=== PATIENT | female | born 1965 | race Caucasian/White ===

== ENCOUNTER 2017-03-29 16:46 | Emergency (ER) | payer OTHER ==
[~2017-03-29] VITALS: Ht 165.1 cm; Wt 107.5 kg
[2017-03-29] MEDS ORDERED: LOSARTAN POTAS100 MG PO (19:13)
[2017-03-29] MEDS ORDERED: METO50 PO (19:13)
[2017-03-29] MEDS ORDERED: GABA600 PO (19:13)
[2017-03-29] MEDS ORDERED: LORA1 PO (19:14)
[2017-03-29] MEDS ORDERED: BACL20 PO (19:14)
[2017-03-29] MEDS ORDERED: DULO60 PO (19:14)
[2017-03-29 19:44] LABS: BASOPHILS PERCENT AUTO 1 % (0-2); EOSINOPHILS ABSOLUTE AUTO 0.31 K/mm3 (0.00-0.68); EOSINOPHILS PERCENT AUTO 3 % (0-6); Hematocrit 42.5 % (33.0-51.0); Hemoglobin 14.9 g/dL (11.5-16.0); IMMATURE GRAN ABSOLUTE AUTO 0.08 K/mm3 (0.00-0.10); IMMATURE GRAN PERCENT AUTO 1 % (0-1); LYMPHOCYTES ABSOLUTE AUTO 2.22 K/mm3 (0.84-5.20); LYMPHOCYTES PERCENT AUTO 22 % (21-46); MONOCYTES PERCENT AUTO 7 % (4-13); Mean Corpuscular HGB 31.1 pg (26.0-34.0); Mean Corpuscular HGB Conc 35.1 g/dL (31.5-36.5); Mean Corpuscular Volume 89 fL (80-100); Mean Platelet Volume 9.7 fL (9.1-12.4); NEUTROPHILS ABSOLUTE AUTO 6.73 K/mm3 (1.96-9.15); NEUTROPHILS PERCENT AUTO 66 % (41-73); Platelet Count 238 K/mm3 (150-400); RDW Coefficient Variation 12.8 % (11.7-14.2); RDW Standard Deviation 41.6 fL (35.1-46.3); Red Blood Cell Count 4.79 M/mm3 (3.80-5.20); White Blood Cell Count 10.14 K/mm3 (4.00-11.30)
[2017-03-29 20:00] LABS: Influenza A Negative (NEGATIVE); Influenza B Negative (NEGATIVE)
[2017-03-29 20:04] LABS: Alanine Aminotransfer (ALT/SGP 36 U/L (12-78); Albumin, Blood 3.8 g/dL (3.4-5.0); Albumin/Globulin Ratio 0.8 (0.8-1.8); Alk Phos 69 U/L (50-136); Anion Gap 7 mmol/L (6-16); Aspartate Aminotrans (AST/SGOT 46 U/L (12-37); Bilirubin, Total 0.6 mg/dL (0.1-1.0); Blood Urea Nitrogen 11 mg/dL (8-24); Bun/Creatinine Ratio 18.6 (12.0-20.0); CO2, Blood 26 mmol/L (21-32); Chloride, Blood 104 mmol/L (98-108); Creatinine, Blood 0.59 mg/dL (0.40-1.00); Globulin, Blood 4.6 g/dL (2.2-4.0); Glomerular Filtration Rate >60 (60-); Glucose, Blood 103 mg/dL (70-99); Potassium, Blood 4.4 mmol/L (3.5-5.5); Sodium, Blood 137 mmol/L (136-145); Total Protein, Blood 8.4 g/dL (6.4-8.2)
[2017-03-29 20:46] LABS: Source, Urine Clean Catch
[2017-03-29 20:50] LABS: Appearance, Urine Hazy (Clear); Bilirubin, Urine Neg (Neg); Blood, Urine Neg (Neg); Color, Urine Yellow (P-Yellow); Glucose Qualitative, Urine Neg (Neg); Ketones, Urine Neg (Neg); Leukocyte Esterase, Urine 2+ (Neg); Nitrite, Urine Pos (Neg); Protein, Urine Neg (Neg); Urobilinogen, Urine NORM (Normal)
[2017-03-29 20:58] LABS: Bacteria Many /hpf; Red Blood Cells, Urine Not Seen /hpf (0-2); Squamous Epithelial Cells Few /hpf (Few)
[2017-03-29 20:59] LABS: U Amphetamine Screen Not Detected; U Barbituate Screen Not Detected; U Cocaine Screen Not Detected; U Methamphetamine Screen Not Detected
[2017-03-29 21:00] LABS: U Benzodiazapine Screen DETECTED; U Buprenorphine Screen Not Detected; U Cannabinoids Screen Not Detected; U Methadone Screen Not Detected; U Opiates Screen DETECTED; U Oxycodone Screen Not Detected; U Phencyclidine Screen Not Detected; U Propoxyphene Screen Not Detected
[2017-03-29 21:22] LABS: Troponin I <0.015 ng/mL (0.000-0.040)
[2017-04-04] MEDS ORDERED: Macrobid 100 M100 MG PO (08:04)
== END 2017-03-29 22:00 | disposition home or self-care (01) ==
LOC: ER 16:46
PROVIDERS: Emergency Medicine
DX: R51 Headache (principal); R53.1 Weakness; R53.83 Other fatigue; Z88.0 Allergy status to penicillin; Z88.2 Allergy status to sulfonamides; Z88.1 Allergy status to other antibiotic agents; Z88.5 Allergy status to narcotic agent; Z79.899 Other long term (current) drug therapy
CPT/HCPCS: 36415; 71046; 80053; 81001; 84443; 84484; 85025; 87077; 87086; 87186; 87804; 93005; 93010; 96360; 96361; 99283; J7030

== ENCOUNTER → 2017-05-01 | Outpatient (CLI) | payer OTHER ==
[~2017-05-01] MED LIST: BACL20 PO; DICLOFENAC SOD100 G1 TOP; DULO60 PO; DULOXETINE HCL30 MG PO; GABA600 PO; LORA1 PO; LOSARTAN POTAS100 MG PO; METO50 PO; Macrobid 100 M100 MG PO; ONDA4ODT MM; Ultram50 MG PO
== END ==
LOC: LAB 11:04
DX: N39.0 Urinary tract infection, site not specified (principal)
CPT/HCPCS: 87077; 87086; 87186

== ENCOUNTER 2017-06-05 01:13 | Emergency (ER) | payer OTHER ==
[~2017-06-05] VITALS: Ht 165.1 cm; Wt 137.9 kg
[~2017-06-05 01:13] MED LIST changes: -DICLOFENAC SOD100 G1 TOP; -DULOXETINE HCL30 MG PO; -ONDA4ODT MM; -Ultram50 MG PO
[2017-06-05] MEDS ORDERED: ONDA4ODT MM (02:56)
[2017-06-05 03:24] LABS: Source, Urine Clean Catch
[2017-06-05 03:27] LABS: BASOPHILS PERCENT AUTO 1 % (0-2); EOSINOPHILS ABSOLUTE AUTO 0.37 K/mm3 (0.00-0.68); EOSINOPHILS PERCENT AUTO 3 % (0-6); Hematocrit 41.8 % (33.0-51.0); Hemoglobin 14.6 g/dL (11.5-16.0); IMMATURE GRAN ABSOLUTE AUTO 0.06 K/mm3 (0.00-0.10); IMMATURE GRAN PERCENT AUTO 0 % (0-1); LYMPHOCYTES ABSOLUTE AUTO 2.55 K/mm3 (0.84-5.20); LYMPHOCYTES PERCENT AUTO 18 % (21-46); MONOCYTES ABSOLUTE AUTO 1.08 K/mm3 (0.16-1.47); MONOCYTES PERCENT AUTO 8 % (4-13); Mean Corpuscular HGB 31.7 pg (26.0-34.0); Mean Corpuscular HGB Conc 34.9 g/dL (31.5-36.5); Mean Corpuscular Volume 91 fL (80-100); Mean Platelet Volume 9.6 fL (9.1-12.4); NEUTROPHILS ABSOLUTE AUTO 10.08 K/mm3 (1.96-9.15); NEUTROPHILS PERCENT AUTO 71 % (41-73); Platelet Count 247 K/mm3 (150-400); RDW Coefficient Variation 13.2 % (11.7-14.2); RDW Standard Deviation 43.4 fL (35.1-46.3); Red Blood Cell Count 4.61 M/mm3 (3.80-5.20); White Blood Cell Count 14.24 K/mm3 (4.00-11.30)
[2017-06-05 03:27] LABS: Appearance, Urine Cloudy (Clear); Bilirubin, Urine Neg (Neg); Blood, Urine 4+ (Neg); Color, Urine Yellow (P-Yellow); Glucose Qualitative, Urine Neg (Neg); Ketones, Urine Neg (Neg); Leukocyte Esterase, Urine 3+ (Neg); Nitrite, Urine Pos (Neg); Protein, Urine 3+ (Neg); Specific Gravity, Urine 1.015 (1.003-1.022); Urobilinogen, Urine NORM (Normal)
[2017-06-05 03:33] LABS: Bacteria Many /hpf; Red Blood Cells, Urine 0-2 /hpf (0-2); Squamous Epithelial Cells Few /hpf (Few); White Blood Cells, Urine TNTC /hpf (0-5)
[2017-06-05 03:46] LABS: Alanine Aminotransfer (ALT/SGP 26 U/L (12-78); Albumin, Blood 3.6 g/dL (3.4-5.0); Albumin/Globulin Ratio 0.7 (0.8-1.8); Alk Phos 68 U/L (50-136); Anion Gap 6 mmol/L (6-16); Aspartate Aminotrans (AST/SGOT 26 U/L (12-37); Bilirubin, Total 0.4 mg/dL (0.1-1.0); Blood Urea Nitrogen 17 mg/dL (8-24); Bun/Creatinine Ratio 23.5 (12.0-20.0); CO2, Blood 29 mmol/L (21-32); Calcium, Blood 9.1 mg/dL (8.5-10.1); Chloride, Blood 104 mmol/L (98-108); Creatinine, Blood 0.72 mg/dL (0.40-1.00); Glomerular Filtration Rate >60 (60-); Glucose, Blood 133 mg/dL (70-99); Potassium, Blood 4.1 mmol/L (3.5-5.5); Sodium, Blood 139 mmol/L (136-145); Total Protein, Blood 8.6 g/dL (6.4-8.2)
== END 2017-06-05 06:30 | disposition short-term general hospital (02) ==
LOC: ER 01:13
PROVIDERS: Emergency Medicine
DX: N13.6 Pyonephrosis (principal); Z88.0 Allergy status to penicillin; Z88.2 Allergy status to sulfonamides; Z88.1 Allergy status to other antibiotic agents; Z88.8 Allergy status to other drugs, medicaments and biological substances; Z79.899 Other long term (current) drug therapy; E66.9 Obesity, unspecified; Z68.43 Body mass index [BMI] 50.0-59.9, adult; Z88.5 Allergy status to narcotic agent; Z88.6 Allergy status to analgesic agent
CPT/HCPCS: 36415; 74176; 80053; 81001; 83605; 83690; 83735; 85025; 87040; 87077; 87086; 87186; 96365; 96375; 96376; 99285; J1170; J1956; J7030

== ENCOUNTER → 2017-06-16 | Outpatient (CLI) | payer OTHER ==
[~2017-06-16] MED LIST changes: +ONDA4ODT MM
== END ==
LOC: LAB SHORT 08:40 → LAB 08:40
DX: N39.0 Urinary tract infection, site not specified (principal)
CPT/HCPCS: 87086

== ENCOUNTER 2017-07-18 14:38 | Emergency (ER) | payer OTHER ==
[~2017-07-18] VITALS: Ht 165.1 cm; Wt 136.1 kg
[2017-07-18] MEDS ORDERED: Ultram50 MG PO (17:13)
[2017-07-18] MEDS ORDERED: DULOXETINE HCL30 MG PO (17:31)
[2017-07-18] MEDS ORDERED: DICLOFENAC SOD100 G1 TOP (17:33)
== END 2017-07-18 17:40 | disposition home or self-care (01) ==
LOC: ER 14:38
DX: S93.602A Unspecified sprain of left foot, initial encounter (principal); M25.512 Pain in left shoulder; M25.511 Pain in right shoulder; M54.5 Low back pain; M25.552 Pain in left hip; E66.9 Obesity, unspecified; Z88.0 Allergy status to penicillin; Z88.2 Allergy status to sulfonamides; Z88.1 Allergy status to other antibiotic agents; Z88.5 Allergy status to narcotic agent; Z88.6 Allergy status to analgesic agent; Z88.8 Allergy status to other drugs, medicaments and biological substances; Z79.899 Other long term (current) drug therapy; W18.30XA Fall on same level, unspecified, initial encounter
CPT/HCPCS: 72040; 72100; 73030; 73502; 73620; 96374; 99284; J3010

== ENCOUNTER → 2017-11-24 | Outpatient (CLI) | payer OTHER ==
[~2017-11-24] MED LIST changes: +DICLOFENAC SOD100 G1 TOP; +DULOXETINE HCL30 MG PO; +Ultram50 MG PO
[2017-11-24 19:13] LABS: Bilirubin, Urine Neg (Neg); Blood, Urine 2+ (Neg); Glucose Qualitative, Urine Neg (Neg); Ketones, Urine Neg (Neg); Leukocyte Esterase, Urine 3+ (Neg); Nitrite, Urine Neg (Neg); Protein, Urine 2+ (Neg); Specific Gravity, Urine 1.025 (1.003-1.022); Urobilinogen, Urine NORM (Normal)
[2017-11-24 19:20] LABS: Appearance, Urine Cloudy (Clear); Color, Urine Yellow (P-Yellow); White Blood Cells, Urine 50-100 /hpf (0-5)
[2017-11-24 19:21] LABS: Bacteria Many /hpf; Squamous Epithelial Cells Many /hpf (Few)
== END ==
LOC: LAB SHORT 13:50 → LAB 13:50
PROVIDERS: Nurse Practitioner Family
DX: R30.0 Dysuria (principal)
CPT/HCPCS: 81001; 87077; 87086; 87186

== ENCOUNTER → 2018-03-17 | Outpatient (CLI) | payer OTHER ==
[~2018-03-17] MED LIST changes: +Cipro500 MG PO; +Percocet 7.5-31 EACH PO
[2018-03-17 11:48] LABS: Source, Urine Clean Catch
[2018-03-17 16:21] LABS: Appearance, Urine Turbid (Clear); Bilirubin, Urine Neg (Neg); Blood, Urine 1+ (Neg); Color, Urine Yellow (P-Yellow); Glucose Qualitative, Urine Neg (Neg); Ketones, Urine Neg (Neg); Leukocyte Esterase, Urine 3+ (Neg); Nitrite, Urine Neg (Neg); Protein, Urine 2+ (Neg); Specific Gravity, Urine 1.025 (1.003-1.022); Urobilinogen, Urine NORM (Normal)
[2018-03-17 16:30] LABS: Red Blood Cells, Urine Not Seen /hpf (0-2)
[2018-03-17 16:31] LABS: Bacteria Many /hpf; Squamous Epithelial Cells Few /hpf (Few)
== END ==
LOC: LAB SHORT 11:15 → LAB 11:15
PROVIDERS: Nurse Practitioner Family
DX: R35.8 Other polyuria (principal)
CPT/HCPCS: 81001; 87077; 87086; 87186

== ENCOUNTER 2018-03-24 10:12 | Emergency (ER) | payer OTHER ==
[~2018-03-24] VITALS: Ht 165.1 cm; Wt 141.1 kg
[~2018-03-24 10:12] MED LIST changes: -Cipro500 MG PO; -Percocet 7.5-31 EACH PO
[2018-03-24 11:01] LABS: BASOPHILS ABSOLUTE AUTO 0.13 K/mm3 (0.00-0.23); BASOPHILS PERCENT AUTO 1 % (0-2); EOSINOPHILS ABSOLUTE AUTO 0.42 K/mm3 (0.00-0.68); EOSINOPHILS PERCENT AUTO 4 % (0-6); Hematocrit 45.9 % (33.0-51.0); Hemoglobin 15.9 g/dL (11.5-16.0); IMMATURE GRAN ABSOLUTE AUTO 0.04 K/mm3 (0.00-0.10); IMMATURE GRAN PERCENT AUTO 0 % (0-1); LYMPHOCYTES ABSOLUTE AUTO 2.76 K/mm3 (0.84-5.20); LYMPHOCYTES PERCENT AUTO 27 % (21-46); MONOCYTES PERCENT AUTO 9 % (4-13); Mean Corpuscular HGB 31.5 pg (26.0-34.0); Mean Corpuscular HGB Conc 34.6 g/dL (31.5-36.5); Mean Corpuscular Volume 91 fL (80-100); Mean Platelet Volume 9.6 fL (9.1-12.4); NEUTROPHILS ABSOLUTE AUTO 5.97 K/mm3 (1.96-9.15); NEUTROPHILS PERCENT AUTO 58 % (41-73); Platelet Count 270 K/mm3 (150-400); RDW Coefficient Variation 13.1 % (11.7-14.2); RDW Standard Deviation 43.4 fL (35.1-46.3); Red Blood Cell Count 5.04 M/mm3 (3.80-5.20); White Blood Cell Count 10.22 K/mm3 (4.00-11.30)
[2018-03-24 11:03] LABS: Source, Urine Clean Catch
[2018-03-24 11:16] LABS: Alanine Aminotransfer (ALT/SGP 30 U/L (12-78); Albumin, Blood 4.1 g/dL (3.4-5.0); Albumin/Globulin Ratio 0.9 (0.8-1.8); Alk Phos 68 U/L (50-136); Anion Gap 9 mmol/L (6-16); Aspartate Aminotrans (AST/SGOT 44 U/L (12-37); Bilirubin, Total 0.8 mg/dL (0.1-1.0); Blood Urea Nitrogen 13 mg/dL (8-24); Bun/Creatinine Ratio 19.6 (12.0-20.0); CO2, Blood 29 mmol/L (21-32); Calcium, Blood 8.9 mg/dL (8.5-10.1); Chloride, Blood 101 mmol/L (98-108); Creatinine, Blood 0.66 mg/dL (0.40-1.00); Globulin, Blood 4.5 g/dL (2.2-4.0); Glomerular Filtration Rate >60 (60-); Glucose, Blood 109 mg/dL (70-99); Potassium, Blood 3.9 mmol/L (3.5-5.5); Sodium, Blood 139 mmol/L (136-145); Total Protein, Blood 8.6 g/dL (6.4-8.2)
[2018-03-24 11:19] LABS: Appearance, Urine Turbid (Clear); Bilirubin, Urine Neg (Neg); Blood, Urine 1+ (Neg); Color, Urine Yellow (P-Yellow); Glucose Qualitative, Urine Neg (Neg); Ketones, Urine 1+ (Neg); Leukocyte Esterase, Urine 1+ (Neg); Nitrite, Urine Pos (Neg); Protein, Urine 2+ (Neg); Specific Gravity, Urine 1.025 (1.003-1.022); Urobilinogen, Urine 1+ (Normal)
[2018-03-24 11:47] LABS: Bacteria Few /hpf; Squamous Epithelial Cells Few /hpf (Few)
[2018-03-24] MEDS ORDERED: Percocet 7.5-31 EACH PO (11:48)
[2018-03-30] MEDS ORDERED: Cipro500 MG PO (07:27)
== END 2018-03-24 14:07 | disposition home or self-care (01) ==
LOC: ER 10:12
PROVIDERS: Physician Assistant
DX: N39.0 Urinary tract infection, site not specified (principal); Z88.0 Allergy status to penicillin; Z88.2 Allergy status to sulfonamides; Z88.8 Allergy status to other drugs, medicaments and biological substances; Z88.1 Allergy status to other antibiotic agents; Z79.899 Other long term (current) drug therapy
CPT/HCPCS: 36415; 74176; 80053; 81001; 85025; 87077; 87086; 87186; 96374; 96375; 99284-25; J1170; J2405

== ENCOUNTER → 2018-03-30 | Outpatient (CLI) | payer OTHER ==
[~2018-03-30] MED LIST changes: +Cipro500 MG PO; +Percocet 7.5-31 EACH PO
[2018-03-30 12:32] LABS: Bilirubin, Urine Neg (Neg); Blood, Urine Neg (Neg); Glucose Qualitative, Urine Neg (Neg); Ketones, Urine 1+ (Neg); Leukocyte Esterase, Urine 1+ (Neg); Nitrite, Urine Neg (Neg); Protein, Urine 2+ (Neg); Specific Gravity, Urine 1.015 (1.003-1.022); Urobilinogen, Urine NORM (Normal)
[2018-03-30 13:00] LABS: Appearance, Urine Turbid (Clear); Color, Urine Yellow (P-Yellow)
[2018-03-30 13:03] LABS: Red Blood Cells, Urine 0-2 /hpf (0-2)
[2018-03-30 13:04] LABS: Squamous Epithelial Cells Few /hpf (Few)
[2018-03-30 13:05] LABS: Amorphous Heavy ({null, 0-Heavy}); Bacteria Few /hpf
== END ==
LOC: LAB 12:19 → LAB SHORT 12:19
PROVIDERS: Nurse Practitioner Family
DX: N39.0 Urinary tract infection, site not specified (principal)
CPT/HCPCS: 81001; 87077; 87086; 87186

== ENCOUNTER 2018-06-15 08:00 | Inpatient (IN) | payer OTHER ==
[~2018-06-15] VITALS: Ht 165.1 cm; Wt 139.0 kg
[~2018-06-15 08:00] MED LIST changes: +METHENAMINE HIPP PO; +NASACORT10.8 ML INH; +Percocet 10-321 EACH PO; -Percocet 7.5-31 EACH PO; +Vitamin C100 M1 PO
--- NOTE | 2018-06-15 09:33 | NUR ---
PT ADMITTED TO [facility]. AGREES WITH PLANNED SURGERY. MEDS, ALLERGIES AND HX REVIEWED. PT IN VIA WC. ABLE TO TRANSFER TO BED AND AMBULATE TO BATHROOM WITH STAND BY ASSIST.
[2018-06-15] MEDS ORDERED: OXYB5 PO (09:55)
--- NOTE | 2018-06-15 10:09 | NUR ---
BAI[place] WITH DR. MCCULLOUGH AND SHE STATED NO HCG NECESSARY.
--- NOTE | 2018-06-15 11:40 | NUR ---
06/15/18 1140 Ben Flowers CHLORAPREP USED TO PREP BILATERAL BREASTS, UPPER ARMS, SHOULDERS, AXILLAS AND NECK POG USED TO PREG VAGINA AND PERIAREA 1ST PROCEDURE HYSTEROSCOPY WITH D&C PER DR. MCCULLOUGH. START 1029 END 1042 2ND PROCEDURE BILATERAL MASTECTOMY WITH LEFT SENTINEL NODE BIOPSY. METHYLENE BLUE INJECTED PER DR. ANDINO AT 1102 INCISION ON LEFT BREAST MADE AT 1118
--- NOTE | 2018-06-15 18:23 | NUR ---
SUMMARY S/P BILATERAL MASTECTOMY AND HYSTERSCOPY W/D&C. EMPTIED MARTHA DRAINS 1,2,4 AND RECORDED INI&OS. MARTHA 3 DID NOT HAVE A MEASURABLE AMOUNT OF DRAINAGE. MEDICATED PT PER ORDERS FOR MASTECTOMY SITE PAIN AND LOWER ABDOMINAL PAIN. PT REPORTS PAIN NOW IMPROVED TO 4/10. TOLERATING SIPS OF CLEAR LIQUIDS. REPORTING SORE THROAT BUT ABLE TO SWALLOW PILLS W/O DIFFICULTY. ALEXANDER CATH DRAINING W/O DIFFICULTY. PT REPORTS ABLE TO STAND BUT WC BOUND AT BASELINE. REPORTS WEAKNESS AND NUMB/TINGLING TO BUE AND BLE. VSS. CALL LIGHT IN REACH. SPOUSE AT BEDSIDE.
--- NOTE | 2018-06-16 04:48 | NUR ---
POD 1 S/P BIALTERAL MASTECTOMY W/D&C. PT VSS T/O NIGHT, O2 TITRATED DOWN TO 1LNC. PAIN MGD ALT PO AND IV PAIN MEDS. DRESSINGS CDI, LEFT (1&2) MARTHA'S PUTTING OUT APPX 60CC EACH, LARGE CLOT NOTED IN MARTHA#2. RIGHT W/ONLY 15CC EACH. NO VAGINAL BLEEDING NOTED. PT BOAZ CLEAR LIQ PO, DOD HAVE EPISODE OF NAUSEA THIS AM, NO EMESIS. BT HYPO, PT REP NO FLATUS YET. PT USING CALL LIGHT FOR ASSISTANCE, WILL CONT TO MONITOR UNTIL REP GIVEN TO ONCOMING RN.
[2018-06-16 05:18] LABS: BASOPHILS ABSOLUTE AUTO 0.06 K/mm3 (0.00-0.23); BASOPHILS PERCENT AUTO 0 % (0-2); EOSINOPHILS ABSOLUTE AUTO 0.01 K/mm3 (0.00-0.68); EOSINOPHILS PERCENT AUTO 0 % (0-6); Hematocrit 42.2 % (33.0-51.0); IMMATURE GRAN ABSOLUTE AUTO 0.11 K/mm3 (0.00-0.10); IMMATURE GRAN PERCENT AUTO 1 % (0-1); LYMPHOCYTES ABSOLUTE AUTO 2.15 K/mm3 (0.84-5.20); LYMPHOCYTES PERCENT AUTO 12 % (21-46); MONOCYTES ABSOLUTE AUTO 1.74 K/mm3 (0.16-1.47); MONOCYTES PERCENT AUTO 10 % (4-13); Mean Corpuscular HGB 31.3 pg (26.0-34.0); Mean Corpuscular HGB Conc 33.2 g/dL (31.5-36.5); NEUTROPHILS ABSOLUTE AUTO 14.17 K/mm3 (1.96-9.15); NEUTROPHILS PERCENT AUTO 78 % (41-73); Platelet Count 389 K/mm3 (150-400); RDW Coefficient Variation 13.5 % (11.7-14.2); RDW Standard Deviation 46.5 fL (35.1-46.3); Red Blood Cell Count 4.48 M/mm3 (3.80-5.20); White Blood Cell Count 18.24 K/mm3 (4.00-11.30)
[2018-06-16 05:20] LABS: Mean Corpuscular Volume 94 fL (80-100)
--- NOTE | 2018-06-16 10:40 | NUR ---
Patient is lying in bed and alert when I entered the room. Patient welcomed spiritual care and openly shared about medical history, belief system and emotional struggles. I listened empathically, reinforced helpful attitudes and practices, normalized patient's experience and provided prayer. Patient responded well to all interventions and stated that the prayer "warmed her heart." Patient expressed gratitude for the visit.
[2018-06-16 12:50] LABS: BASOPHILS PERCENT AUTO 1 % (0-2); EOSINOPHILS ABSOLUTE AUTO 0.09 K/mm3 (0.00-0.68); EOSINOPHILS PERCENT AUTO 1 % (0-6); Hematocrit 36.4 % (33.0-51.0); Hemoglobin 12.1 g/dL (11.5-16.0); IMMATURE GRAN ABSOLUTE AUTO 0.13 K/mm3 (0.00-0.10); IMMATURE GRAN PERCENT AUTO 1 % (0-1); LYMPHOCYTES ABSOLUTE AUTO 3.57 K/mm3 (0.84-5.20); LYMPHOCYTES PERCENT AUTO 20 % (21-46); MONOCYTES ABSOLUTE AUTO 2.63 K/mm3 (0.16-1.47); MONOCYTES PERCENT AUTO 15 % (4-13); Mean Corpuscular HGB 31.7 pg (26.0-34.0); Mean Corpuscular HGB Conc 33.2 g/dL (31.5-36.5); Mean Corpuscular Volume 95 fL (80-100); Mean Platelet Volume 9.4 fL (9.1-12.4); NEUTROPHILS ABSOLUTE AUTO 11.14 K/mm3 (1.96-9.15); NEUTROPHILS PERCENT AUTO 63 % (41-73); Platelet Count 349 K/mm3 (150-400); RDW Coefficient Variation 13.9 % (11.7-14.2); RDW Standard Deviation 48.8 fL (35.1-46.3); Red Blood Cell Count 3.82 M/mm3 (3.80-5.20); White Blood Cell Count 17.66 K/mm3 (4.00-11.30)
--- NOTE | 2018-06-16 16:25 | NUR ---
On 06/16/18 @6722 this patient gave this nursing secretary verbal consent to access chart and care for on 06/17/18 from [id number].
[2018-06-16 17:25] LABS: Hematocrit 35.4 % (33.0-51.0); Hemoglobin 11.8 g/dL (11.5-16.0)
--- NOTE | 2018-06-16 18:12 | NUR ---
SUMMARY PT'S BP TRENDED DOWN T/O DAY UNTIL 1600 VS WHEN WAS FOUND TO HAVE BP OF 82/52 [address] BED. CALLED DR ANDINO AND GOT ORDERS FOR H&H. PT BEGAN TO "FEEL WEIRD", STATING FELT SOB AND DIZZY. BP WAS 79/31. PULLED IV FLUIDS AND BEGAN. LAID PT FLAT IN BED AND BP IMPROVED TO A SBP OF LOW 100S. SAT PT UP FOR DINNER AND BP DROPPED TO 89/25. PT CONTINUES TO FEEL UNWELL. CALLED SECURITY ALARM TECHNICIAN PHYSICIAN, DR WALKER, AND OBTAINED ORDERS FOR FLUID BOLUS AND FLUIDS AT 125/HR AFTER BOLUS. IF BP NORMALIZES, MAY SALINE LOCK PT. PT HAS ONLY HAD 190 ML DARK YELLOW URINE OUT FOR SHIFT. WHILE MARTHA DRAINS 1,3,4 HAVE HAD MINIMAL OUTPUT, MARTHA #2 HAS HAD 260 ML OUT FOR A TOTAL OF 300 ML MARTHA OUTPUT THIS SHIFT. CALL LIGHT IN REACH. FLUID BOLUS INFUSING AT THIS TIME.
--- NOTE | 2018-06-17 02:04 | NUR ---
PT BLOOD PRESSURE STABILIZED, IV SALINE LOCKED
[2018-06-17 05:21] LABS: BASOPHILS ABSOLUTE AUTO 0.13 K/mm3 (0.00-0.23); BASOPHILS PERCENT AUTO 1 % (0-2); EOSINOPHILS PERCENT AUTO 2 % (0-6); Hematocrit 35.8 % (33.0-51.0); Hemoglobin 11.6 g/dL (11.5-16.0); IMMATURE GRAN ABSOLUTE AUTO 0.08 K/mm3 (0.00-0.10); IMMATURE GRAN PERCENT AUTO 1 % (0-1); LYMPHOCYTES ABSOLUTE AUTO 3.55 K/mm3 (0.84-5.20); LYMPHOCYTES PERCENT AUTO 24 % (21-46); MONOCYTES ABSOLUTE AUTO 2.13 K/mm3 (0.16-1.47); MONOCYTES PERCENT AUTO 14 % (4-13); Mean Corpuscular HGB 30.6 pg (26.0-34.0); Mean Corpuscular HGB Conc 32.4 g/dL (31.5-36.5); Mean Corpuscular Volume 95 fL (80-100); NEUTROPHILS ABSOLUTE AUTO 8.83 K/mm3 (1.96-9.15); NEUTROPHILS PERCENT AUTO 59 % (41-73); Platelet Count 253 K/mm3 (150-400); RDW Coefficient Variation 13.7 % (11.7-14.2); RDW Standard Deviation 46.8 fL (35.1-46.3); Red Blood Cell Count 3.79 M/mm3 (3.80-5.20); White Blood Cell Count 15.02 K/mm3 (4.00-11.30)
--- NOTE | 2018-06-17 06:54 | NUR ---
SHIFT SUMMARY PT IS POD #2, BP TRENDING DOWNWARD EARLY THIS SHIFT, STABILIZED WITH FLUID BOLUS. VITAL SIGNS REMAINED STABLE WITH BP APPROXIMATELY 140/60, O2 SATS >90% ON 1L. PT WAS OCCASIONALLY DISORIENTED AND ANXIOUS, EASILY REORIENTED. PT COMPLAINING OF DIZZINESS AND NAUSEA WHEN UP, QUICKLY RESOLVED WITH REST. PT IS PLEASANT AND COOPERATIVE WITH CARE. SURGICAL DRESSINGS WITHOUT ACTIVE DRAINAGE, MARTHA DRAINAGE DECREASING THIS SHIFT. BLOOD PRESSURES TAKEN ON PATIENT'S RIGHT SIDE.
--- NOTE | 2018-06-17 14:00 | NUR ---
REPORT FROM EVARISTO Parish RN. ASSUMED PT CARE.
--- NOTE | 2018-06-17 14:15 | NUR ---
DR ANDINO TO ROOM FOR EVAL.
--- NOTE | 2018-06-17 14:30 | NUR ---
OTHER STAFF TO ROOM TO MEDICATE FOR PAIN.
--- NOTE | 2018-06-17 14:35 | NUR ---
MARTHA DRAINS EMPTIED AND RECORDED. JP1 10ML JP2 30ML JP3 10ML JP4 20ML PT SITTING UP IN BED. DENIES NEEDS AT THIS TIME.
--- NOTE | 2018-06-17 14:47 | NUR ---
REPORT FROM EVARISTO JOE. ASSUMED PT CARE.
--- NOTE | 2018-06-17 16:18 | NUR ---
PT MEDICATED WITH DILAUDID FOR PAIN. BACK TO BED AFTER USING RR. SCHEDULED MEDS ALSO PROVIDED.
--- NOTE | 2018-06-17 18:49 | NUR ---
PT MEDICATED WITH 2 OXY PO. PT USING COMMODE.
--- NOTE | 2018-06-17 19:09 | NUR ---
REPORT TO GATITO JOE.
--- NOTE | 2018-06-18 06:44 | NUR ---
SUMMARY: PT IS POD3 BILAT MASTECTOMY. NO ACUTE CHANGE TONIGHT. VSS, A/O. SURGICAL SITES WNL, BINDER IN PLACE. MARTHA SITES DRAINED A TOTAL OF 40ML. MORE OUTPUT FROM DRAINS 1 AND 3, CLOTS NOTED AT DRAIN 1. PT MEDICATED FOR PAIN PER EMAR, NEEDED 0.5MG DILAUDID X2 FOR BREAK THROUGH. GIVEN ZOFRAN X2, NO EMESIS. PT REPORTS ZOFRAN HELPS NAUSEA. PT UP WITH 1 ASSIST. NO VAGINAL BLEED. WILL CTM AND REPORT TO DAY RN
--- NOTE | 2018-06-18 06:55 | NUR ---
REPORT RECEIVED FROM GATITO JOE.
--- NOTE | 2018-06-18 07:29 | NUR ---
OCCUPATIONAL THERAPIST'S ASSISTANT CHECKING VS. PT DENIES NEEDS AT THIS TIME.
--- NOTE | 2018-06-18 07:50 | NUR ---
PT MEDICATED WITH DILAUDID FOR PAIN AND SCHED MEDS PER EMAR. BP MEDS HELD AT THIS TIME. MARTHA DRAINS EMPTIED: JP1 7ML JP2 3ML JP3 5ML JP4 20ML PT BOAZ WELL. FAMILY AT BEDSIDE.
--- NOTE | 2018-06-18 08:20 | NUR ---
PT MORE COMFORTABLE. EATING BREAKFAST.
--- NOTE | 2018-06-18 09:32 | NUR ---
PT MEDICATED WITH ZOFRAN FOR C/O NAUSEA. COOL RAG TO FORHEAD.
--- NOTE | 2018-06-18 09:55 | NUR ---
PT MORE COMFORTABLE.
--- NOTE | 2018-06-18 10:39 | NUR ---
PT MEDICATED WITH BACLOFEN AND OXY PER EMAR. PT STATES NAUSEA GONE. WATCHING TV. FAMILY AT BEDSIDE.
--- NOTE | 2018-06-18 11:30 | NUR ---
PT RESTING IN POSITIONG OF COMFORT. STATES PAIN IMPROVED.
--- NOTE | 2018-06-18 11:48 | NUR ---
DR ANDINO AT BEDSIDE.
--- NOTE | 2018-06-18 12:15 | NUR ---
PT MEDICATED PER EMAR. LABS DRAWN FROM INT AND SENT TO LAB. PT SITTING UP IN BED EATING LUNCH. BINDER AND BANDAGES REMOVED FROM CHEST. PT BOAZ WELL, SITE WITH SOME DRIED DRAINAGE.
[2018-06-18 13:46] LABS: BASOPHILS ABSOLUTE AUTO 0.09 K/mm3 (0.00-0.23); BASOPHILS PERCENT AUTO 1 % (0-2); EOSINOPHILS ABSOLUTE AUTO 0.41 K/mm3 (0.00-0.68); EOSINOPHILS PERCENT AUTO 4 % (0-6); Hematocrit 28.5 % (33.0-51.0); Hemoglobin 9.8 g/dL (11.5-16.0); IMMATURE GRAN ABSOLUTE AUTO 0.14 K/mm3 (0.00-0.10); IMMATURE GRAN PERCENT AUTO 1 % (0-1); LYMPHOCYTES ABSOLUTE AUTO 3.42 K/mm3 (0.84-5.20); LYMPHOCYTES PERCENT AUTO 34 % (21-46); MONOCYTES ABSOLUTE AUTO 0.91 K/mm3 (0.16-1.47); MONOCYTES PERCENT AUTO 9 % (4-13); Mean Corpuscular HGB 32.7 pg (26.0-34.0); Mean Corpuscular HGB Conc 34.4 g/dL (31.5-36.5); Mean Corpuscular Volume 95 fL (80-100); Mean Platelet Volume 10.4 fL (9.1-12.4); NEUTROPHILS ABSOLUTE AUTO 5.23 K/mm3 (1.96-9.15); NEUTROPHILS PERCENT AUTO 51 % (41-73); Platelet Count 249 K/mm3 (150-400); RDW Coefficient Variation 13.5 % (11.7-14.2); RDW Standard Deviation 46.9 fL (35.1-46.3)
[2018-06-18 13:56] LABS: Anion Gap 5 mmol/L (6-16); Blood Urea Nitrogen 10 mg/dL (8-24); Bun/Creatinine Ratio 17.2 (12.0-20.0); CO2, Blood 33 mmol/L (21-32); Calcium, Blood 8.6 mg/dL (8.5-10.1); Chloride, Blood 101 mmol/L (98-108); Creatinine, Blood 0.58 mg/dL (0.40-1.00); Glomerular Filtration Rate >60 (60-); Glucose, Blood 122 mg/dL (70-99); Potassium, Blood 4.2 mmol/L (3.5-5.5); Sodium, Blood 139 mmol/L (136-145)
--- NOTE | 2018-06-18 14:00 | NUR ---
PT MEDICATED WITH BACLOFEN AND OXY PER EMAR FOR C/O PAIN. PT ATE WELL. LUNCH CLEARED.
--- NOTE | 2018-06-18 15:05 | NUR ---
PT RESTING IN POSITION OF COMFORT. RESP EVEN AND NON LABORED.
--- NOTE | 2018-06-18 15:51 | NUR ---
PT CONCERNED THAT SHE IS HALLUCINATING. STATES "IM SEEING THE AVENGERS IN MY ROOM. PEOPLE WHO ARENT THERE. A ONE POINT I THOUGHT MY FAMILY WERE TRYING TO TAKE MY MEDS. THIS HAPPENED THE OTHER NIGHT WHEN MY BLOOD PRESSURE DROPPED" VSS. PT PROVIDED WITH NEW ICE WATER. PT FAMILY AT BEDSIDE. ADVISED PT TO CALL FOR ANY OTHER CONCERNS OR SYMPTOMS.
--- NOTE | 2018-06-18 16:46 | NUR ---
ASSISTED PT UP TO BSC. MARTHA DRAINS EMPTIED. PT SITTING UP ON SIDE OF BED DOIND IS.
--- NOTE | 2018-06-18 17:03 | NUR ---
ASSISTED PT BACK TO BED.
--- NOTE | 2018-06-18 17:36 | NUR ---
DINNER TRAY PROVIDED. PT MEDICATED WITH NEURONTIN PER EMAR. PT STATES SHE FEELS LESS FOGGY.
--- NOTE | 2018-06-18 18:25 | NUR ---
PT MEDICATED WITH 2 OXY PO PER EMAR. PT BOAZ DINNER WELL. ATE WELL. ASSISTED TO BSC FOR POTENTIAL BM. URINE COLLECTED AND SENT TO LAB.
[2018-06-18 18:40] LABS: Source, Urine Clean Catch
[2018-06-18 18:47] LABS: Bilirubin, Urine Neg (Neg); Blood, Urine 5+ (Neg); Glucose Qualitative, Urine Neg (Neg); Ketones, Urine Neg (Neg); Leukocyte Esterase, Urine 3+ (Neg); Nitrite, Urine Pos (Neg); Protein, Urine 2+ (Neg); Specific Gravity, Urine 1.025 (1.003-1.022); Urobilinogen, Urine NORM (Normal)
[2018-06-18 18:58] LABS: Appearance, Urine Hazy (Clear); Color, Urine Yellow (P-Yellow)
[2018-06-18 18:59] LABS: Bacteria Many /hpf; Red Blood Cells, Urine TNTC /hpf (0-2); Squamous Epithelial Cells Mod /hpf (Few); White Blood Cells, Urine TNTC /hpf (0-5)
--- NOTE | 2018-06-18 19:18 | NUR ---
REPORT TO GATITO JOE.
--- NOTE | 2018-06-19 04:57 | NUR ---
SUMMARY: NO ACUTE CHANGE TONIGHT. PT ABLE TO SLEEP. BRUISING AT L SURGICAL SITE, OTHERWISE SITES WNL AND ABOUT 80ML FROM MARTHA'S ON PT L CHEST, MINIMAL OUTPUT FROM R CHEST MARTHA'S. PT MEDICATED Q4 PRN WITH 2 PERCOCETS. REPORTED NAUSEA X1, ZOFRAN GIVEN. PT MOVED BETTER THIS SHIFT TO COMMODE, 1 ASSIST. VSS, USING CALL LIGHT. NO SAFETY CONCERNS AT THIS TIME.
--- NOTE | 2018-06-19 06:55 | NUR ---
REPORT RECEIVED FROM GATITO JOE. ASSUMED PT CARE.
--- NOTE | 2018-06-19 07:00 | NUR ---
PT UP ON BSC. FEELS UNWELL THIS AM. STATES "I THINK I HAVE A UTI." THIS RN TO REVIEW UA FROM [facility].
--- NOTE | 2018-06-19 07:10 | NUR ---
MESSAGE LEFT WITH OR STAFF RE PT UA RESULTS. PT STATES SHE USUALLY TAKES LEVAQUIN.
--- NOTE | 2018-06-19 07:45 | NUR ---
PT MEDICATED WITH 2 PO OXY PER EMAR FOR C/O "PAIN EVERYWHERE". PT STILL SITTING ON BSC, FEELS "WORSE TODAY". AWAITING CALL BACK FROM DR ANDINO.
--- NOTE | 2018-06-19 08:27 | NUR ---
PT MEDICATED PER EMAR WITH SCHEDULED MEDS. PT WORKING ON BREAKFAST. MARTHA DRAINS EMPTIED. JP1 10ML SANGUINOUS JP2 10ML SANGUINOUS JP3 7.5ML SEROSANGUINOUS JP4 30ML RED TINGED SEROUS
--- NOTE | 2018-06-19 09:22 | NUR ---
ASSISTE PT BACK TO BED. PT TEARFUL AND MOANS OFTEN. STATES "I SAT UP TOO LONG"
--- NOTE | 2018-06-19 09:46 | NUR ---
PT MEDICATED WITH ZOFRAN AND DILAUDID FOR C/O PAIN. PT TEARFUL. FAMILY PRACTITIONER AT BEDSIDE.
--- NOTE | 2018-06-19 10:05 | NUR ---
PT MORE COMFORTABLE AT THIS TIME. STATES PAIN IMPROVED.
--- NOTE | 2018-06-19 10:36 | NUR ---
FAMILY AT BEDSIDE. AWAITING DR ANDINO.
--- NOTE | 2018-06-19 12:07 | NUR ---
PT MEDICATED WITH 2 OXY AND SCHED MEDS PER EMAR. FAMILY AT BEDSIDE. AWAITING DR ANDINO
--- NOTE | 2018-06-19 12:33 | NUR ---
DR ANDINO TO ROOM FOR EVAL. BOTH DRAINS TO RIGHT MASTECTOMY SITE REMOVED. PT BOAZ WELL. LOOSE DRESSING PLACED. DISCUSSED CONCERNS RE PT PAIN AND UTI WITH DR ANDINO, VERBAL ORDER TO CONSULT HOSPITALIST. PLAN TO START LEVAQUIN PO, CONSULT HOSP TO TREAT.
--- NOTE | 2018-06-19 14:37 | NUR ---
PALLIATIVE CARE TO ROOM.
--- NOTE | 2018-06-19 15:04 | NUR ---
Initial Visit: Palliative Care Consult for Advanced Care Planning, Cancer, and Symptom Management. Pt is A&Ox4 and reports 7/10 pain associated with her surgical sites and left leg. Pt reports 4/10 anxiety. Pt denies SOB at this time. Educated Pt on distraction technique to help manage anxiety and pain. Pt reports the PO pain medication brings the pain to 5/10 and when she receives the IV pain medictions the pain drops to 3/10. Engaged in therapeutic conversaton regarding advanced care planning and goals of care. Pt lives at home with her Kashmir and son Kel. Kashmir is Pt's primary caregiver and recently suffered CT and is not able to provide care for Pt. Pt as caregivers from [facility] who help with care for 4 hours a day 6 days a week. Pt's brother essie prepares dinner and Pt's son Kel helps prepare lunch. Pt reports at baseline she is bed bound for much of the day. She does get out of bed to use bathroom and on occasion will get out of bed for dinner. She reports significant muscles pain and deterioration. 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 Pt also reports her mother from ALS. Pt is of [employer] [place] and is agreeable for daily chaplian visits. Engaged in discussion of importance for planning ahead as her disease process takes it coarse. Suggested for Pt to have routine conversations with PCP and specialists to stay informed of her disease process and trajectory. Discussed advanced directives with Pt. Pt expresses interest and educated Pt on AD. Educated on life sustaining measures and risk factors. Discussed the importance of assigning a healthcare sales representative health insurance. Pt reports she will complete AD with family. Pt reports no other concerns at this time. Spoke with Pt's nurse Ean and she reports no concerns at this time. She reports Pt stay at [facility] has been extended and hospitalist will be invloved in Pt's care. Plan: student accounts manager Kimberly is working with Pt's renal case manager at [facility] to determine if Pt qualifies for additional support at home. Will place spiritual care consult for daily visits. Will remain available for symptom management.
--- NOTE | 2018-06-19 15:56 | NUR ---
PT MEDICATED WITH BACLOFEN AND OXY PER EMAR. PT RESTING IN BED.
--- NOTE | 2018-06-19 17:17 | NUR ---
PT MORE COMFORTABLE AT THIS TIME. WILL CONT TO MONITOR. DINNER TRAY PROVIDED.
--- NOTE | 2018-06-19 17:25 | NUR ---
DR GALO AT BEDSIDE FOR EVAL AND ASSESSMENT. PT ASSISTED TO SIDE OF BED FOR DINNER. PT MEDICATED WITH SCHEDULED MEDS PER EMAR.
--- NOTE | 2018-06-19 18:21 | NUR ---
ASSISTED PT TO BSC, THEN BACK TO BED. MARTHA DRAINS EMPTIED. JP1 20ML SANGUINOUS JP2 30ML SANGUINOUS. CALL LIGHT IN REACH. PT GOWN AND SHEET CHANGED.
[2018-06-20 06:30] LABS: BASOPHILS ABSOLUTE AUTO 0.07 K/mm3 (0.00-0.23); BASOPHILS PERCENT AUTO 1 % (0-2); EOSINOPHILS ABSOLUTE AUTO 0.39 K/mm3 (0.00-0.68); EOSINOPHILS PERCENT AUTO 4 % (0-6); Hemoglobin 9.3 g/dL (11.5-16.0); IMMATURE GRAN ABSOLUTE AUTO 0.29 K/mm3 (0.00-0.10); IMMATURE GRAN PERCENT AUTO 3 % (0-1); LYMPHOCYTES ABSOLUTE AUTO 2.85 K/mm3 (0.84-5.20); LYMPHOCYTES PERCENT AUTO 30 % (21-46); MONOCYTES ABSOLUTE AUTO 0.71 K/mm3 (0.16-1.47); MONOCYTES PERCENT AUTO 8 % (4-13); Mean Corpuscular HGB 31.7 pg (26.0-34.0); Mean Corpuscular HGB Conc 33.2 g/dL (31.5-36.5); Mean Corpuscular Volume 96 fL (80-100); Mean Platelet Volume 9.9 fL (9.1-12.4); NEUTROPHILS ABSOLUTE AUTO 5.12 K/mm3 (1.96-9.15); NEUTROPHILS PERCENT AUTO 54 % (41-73); NRBC ABSOLUTE 0.07 K/mm3 (0.00-0.02); NRBC Auto 0.7 /100 WBC (0.0-0.2); Platelet Count 252 K/mm3 (150-400); RDW Coefficient Variation 13.8 % (11.7-14.2); RDW Standard Deviation 48.1 fL (35.1-46.3); Red Blood Cell Count 2.93 M/mm3 (3.80-5.20); White Blood Cell Count 9.43 K/mm3 (4.00-11.30)
[2018-06-20 07:53] LABS: Albumin, Blood 3.1 g/dL (3.4-5.0); Anion Gap 5 mmol/L (6-16); Blood Urea Nitrogen 7 mg/dL (8-24); Bun/Creatinine Ratio 11.1 (12.0-20.0); CO2, Blood 36 mmol/L (21-32); Calcium, Blood 8.7 mg/dL (8.5-10.1); Chloride, Blood 99 mmol/L (98-108); Creatinine, Blood 0.63 mg/dL (0.40-1.00); Glomerular Filtration Rate >60 (60-); Glucose, Blood 117 mg/dL (70-99); Phosphorus, Blood 3.2 mg/dL (2.5-4.9); Potassium, Blood 3.7 mmol/L (3.5-5.5); Sodium, Blood 140 mmol/L (136-145)
--- NOTE | 2018-06-20 18:24 | NUR ---
SHIFT SUMMARY PT ADMITTED FOR MASTECTOMY. REG DIET. 1 PERSON TRANSFER. USES COMMODE. 20G IN [facility]. PT PAIN HAS STAYED AT 7-8 THROUGH SHIFT. HAS BEEN WITH FAMILY MOST OF THE DAY. 2 MARTHA TUBES ON LEFT SIDE. O2 AT NIGHT. PT IS ALERT AND ORIENTED. HAD BED BATH THIS AFTERNOON. POSSIBLE DC TOMORROW. PT IS NEAR BASELINE FOR AMBULATUION. HAS ELECTRIC WC AT HOME.
--- NOTE | 2018-06-20 18:27 | NUR ---
SHIFT SUMMARY PT HAS REPORTED INCREASED PAIN THIS SHIFT. SHE REPORTS A BURNING SENSATION AT HER INCISION SITES SINCE SHE GOT OOB THIS AM WITH THERAPY. SHE HAS REQUIRED PERCOCET FOR PAIN MANAGEMENT AND DILAUDID IV X1 FOR BREAKTHROUGH PAIN. PT IS A 1 PERSON MODERATE ASSIST WHEN OOB. FAMILY HAS BEEN AT THE BEDSIDE FOR SUPPORT T/O THE DAY. VSS. WILL MONITOR UNTIL REPORT TO ONCOMING RN.
--- NOTE | 2018-06-21 06:33 | NUR ---
POD 6 S/P BILATERAL MASTECTOMY W/D&C. PT VSS T/O NIGHT, 1LO2 NC IN PLACE WHILE SLEEPING. PAIN AND SPASMS MGD PER EMAR. DRESSINGS CDI, MARTHA PUTTING OUT SANG DRNG. PT BOAZ REG PO, NO C/O N/V. PT UP OOB W/FWW+1 ASSIST, REP MOBILITY NEAR BASELINE. PT ANXIOUS AT TIMES, SUPPORT AND EDUCATION PROVIDED PRN. PT USING CALL LIGHT FOR ASSISTANCE, WILL CONT TO MONITOR UNTIL REP GIVEN TO ONCOMING RN.
--- NOTE | 2018-06-21 15:08 | NUR ---
DOCTOR STEFANIEING DR. WALKER CAME IN TO CHECK ON PATIENT POST-SURGERY. REPORTED THAT PT HAD ATTEMPTED TO GET OUT OF BED WITH PHYSICAL THERAPY AND WAS UNSUCCESSFUL AND THAT PATIENT HAD BEEN DRINKING FLUIDS.
--- NOTE | 2018-06-21 15:14 | NUR ---
DISCUSSED PT'S CARE WITH DR. WALKER. HE REPORTED THAT THE PLAN WAS FOR POSSIBLE REMOVAL OF MARTHA DRAINS ON FRIDAY. DISCUSSED PAIN MANAGEMENT ISSUES AND CONTINUED NEED FOR IV PAIN MEDICATION.
--- NOTE | 2018-06-21 17:20 | NUR ---
SHIFT SUMMARY PT ADMITTED FOR MASTECTOMY. HAS CHRONIC UTI. 1 PERSON TRANSFER TO COMMODE. POST OP DAY 6. MOBILITY IS AT BASELINE. BACLAFIN QOD PER ORDERS. REG DIET. PT MIGHT DISCHARGE FRIDAY. TREATING FOR PAIN AND ENCOURAGINE INCREASED MOBILITY.
--- NOTE | 2018-06-21 19:29 | NUR ---
SHIFT SUMMARY PAIN HAS BEEN MANAGED WITH PO PAIN MEDICATION THIS SHIFT. PT REQUIRED IV DILAUIDID FOR BREAKTHROUGH PAIN X1. BACLOFEN WAS SCHEDULED TO HELP REDUCE MUSCLE SPASMS, THIS APPEARS TO BE DECREASING SPASMS. PT WAS ENCOURAGED TO GET OOB MORE THIS SHIFT. SHE WAS WILLING TO SIT IN HER RECLINER FOR DINNER. SHE WAS A 1 ASSIST WITH TRANSFERS AND GOT OOB TO USE THE BSC. MARTHA DRAINS REMAIN IN PLACE TO THE L SIDE. VSS. WILL MONITOR UNTIL REPORT TO ONCOMING RN.
--- NOTE | 2018-06-22 06:07 | NUR ---
SHIFT SUMMARY PT POD#7 BILATERAL MASTECTOMY AND D&C. NO ACUTE CHANGES THIS SHIFT. VSS, PT ON 1 L 02 SATS >90%. NO REPORTS OF SOB OR NAUSEA. PT REP PAINFUL SPASMS INCREASING IN FREQUENCY, WELL CONTINUING INCISIONAL PAIN. PAIN MANAGED WITH OXYCODONE PER EMAR, PT REPORTS RELIEF. PT TOLERATING ADVANCEMENT OF DIET WELL. PT CURRENTLY BEING TREATED FOR UTI. MARTHA DRAINS 1&[address] DRAINING SCANT DARK SEROSANGUINOUS FLUID. PT APPEARS ANXIOUS OCCASIONALLY, RECEPTIVE TO THERAPEUTIC COMMUNICATION.
--- NOTE | 2018-06-22 09:15 | NUR ---
DR GALO HERE TO SEE PT.
--- NOTE | 2018-06-22 14:58 | NUR ---
Jacqueline admits to being fearful regarding her dx. But even with that, she smiles easily and expresses deep gratitude for the love of family/friends. Spouse, Kashmir was at bedside. He appears devoted, but said very little. Both were appreciaitve of spiritual direction and prayer. I will remain available.
[2018-06-22] MEDS ORDERED: LEVFLO500 PO (16:52)
--- NOTE | 2018-06-22 17:15 | NUR ---
DISCHARGE: PT PAIN CONTROLLED WITH PO PAIN MEDICATION THIS AFTERNOON. PT REPORTS DOES NO LONGER WISH TO HAVE MAG CITRATE HERE WILL TAKE WHEN SHE GETS HOME SHE REPORTS HAVING CHRONIC ISSUE AND REPORTS WILL TAKE WHEN SHE GETS HOME. PT VOIDING. PT AND FAMILY REPORTS UNDERSTANDING OF DISCHARGE INSTRUCTIONS INCLUDING MARTHA DRAIN AND DRESSING CARE. CUSHION FORMER ASSISTED WITH DISCHARGE. PT GIVEN SCRIPTS. IV OUT WNL, NO OTHER IV IN PLACE. FAMILY ASSISTED WITH GETTING PT DRESSED. PT REPORTS HAVING WALKER AT HOME R/T "OTHER" CHRONIC CO-MORBIDITIES. SEE HX.
== END 2018-06-22 17:18 | disposition home or self-care (01) | DRG 580 ==
LOC: NM 08:00 → ORSCMMR 08:01 → NM 09:00 → SURS 15:17 → NM 15:17 → SURS 16:36
PROVIDERS: Internal Medicine; Obstetrics & Gynecology; ADMIT Surgery
PROC: 0UDB8ZZ Extraction of Endometrium, Via Natural or Artificial Opening Endoscopic (ICD-10-PCS; 2018-06-15)
PROC: 0HTV0ZZ Resection of Bilateral Breast, Open Approach (ICD-10-PCS; principal; 2018-06-15 10:00)
PROC: 07B60ZX Excision of Left Axillary Lymphatic, Open Approach, Diagnostic (ICD-10-PCS; 2018-06-15 10:00)
PROC: 0HBV0ZX Excision of Bilateral Breast, Open Approach, Diagnostic (ICD-10-PCS; 2018-06-15 10:00)
DX: C50.412 Malignant neoplasm of upper-outer quadrant of left female breast (principal); C77.3 Secondary and unspecified malignant neoplasm of axilla and upper limb lymph nodes; N39.0 Urinary tract infection, site not specified; N94.89 Other specified conditions associated with female genital organs and menstrual cycle; N85.00 Endometrial hyperplasia, unspecified; C50.212 Malignant neoplasm of upper-inner quadrant of left female breast; I10 Essential (primary) hypertension; E78.5 Hyperlipidemia, unspecified; K59.00 Constipation, unspecified; F43.12 Post-traumatic stress disorder, chronic; E66.9 Obesity, unspecified; N92.4 Excessive bleeding in the premenopausal period; G13.0 Paraneoplastic neuromyopathy and neuropathy; R82.71 Bacteriuria; B96.20 Unspecified Escherichia coli [E. coli] as the cause of diseases classified elsewhere; B95.2 Enterococcus as the cause of diseases classified elsewhere; N32.81 Overactive bladder
CPT/HCPCS: 36415; 38792; 80048; 80069; 81001; 85014; 85018; 85025; 87077; 87086; 87186; 88305; 88307; 88342; 88360; 97110; 97162; 97166; 97530; A9270-GY; A9520; J0690; J1100; J1170; J1650; J2250; J2370; J2405; J2704; J2765; J3010; J7030; J7120; Q9968

== ENCOUNTER 2018-07-13 10:51 | Day surgery (SDC) | payer OTHER ==
[~2018-07-13 10:51] MED LIST changes: +LEVFLO500 PO; +OXYB5 PO
== END 2018-07-13 22:46 | disposition home or self-care (01) ==
LOC: US 10:51
DX: M96.843 Postprocedural seroma of a musculoskeletal structure following other procedure (principal); I10 Essential (primary) hypertension; E78.5 Hyperlipidemia, unspecified; E66.9 Obesity, unspecified; F41.9 Anxiety disorder, unspecified; Z90.13 Acquired absence of bilateral breasts and nipples; Z79.899 Other long term (current) drug therapy; Z88.0 Allergy status to penicillin; Z88.2 Allergy status to sulfonamides; Z88.1 Allergy status to other antibiotic agents; Z88.5 Allergy status to narcotic agent; Z91.048 Other nonmedicinal substance allergy status
CPT/HCPCS: 10030

== ENCOUNTER 2018-07-23 05:47 | Day surgery (SDC) | payer OTHER ==
[~2018-07-23] VITALS: Ht 168 cm; Wt 139.3 kg
[~2018-07-23 05:47] MED LIST changes: +CLIN300 PO; +HIPREX1 GM PO; -METHENAMINE HIPP PO; +NASACORT10.8 ML
[2018-07-23] MEDS ORDERED: GABA600 PO (06:47)
--- NOTE | 2018-07-23 07:12 | NUR ---
PT INTO SDS VIA W/C. ABLE TO TRANSFER TO SCALE FOR WEIGHT WITH MINIMAL ASSISTANCE. Patient confirms NPO status and agrees with scheduled surgery. Patient reports completing Chlorhexadine shower X2 prior to admission to hospital.Surgical site prepped with 2% Chlorhexidine cloth wipe.
--- NOTE | 2018-07-23 10:20 | NUR ---
SITTING UP DRINKING JUICE AND TAKING CRACKERS, NO NAUSEA, PAIN MILD, AGREEABLE TO TAKE PAIN PILL. TRIALED WITH NO O2, PT STILL SHALLOW BREATHING, DROPPS TO 83% ON ROOM AIR, O2 REAPPLIED AND WILL CONTINUE TO MONITOR, PT PRACTICING DB AND COUGH. STATES SHE HAS SLEEP APNEA TEST RESULTS PENDING.
--- NOTE | 2018-07-23 10:58 | NUR ---
DRG C/D/I WITH BREAST BINDER IN PLACE. PT SPOKE TO DR ANDINO POST SURGERY ABOUT DRG CARE. PT TO SEE RN TOMORROW FOR FOLLOW UP. PT TO BATHROOM TO VOID AND TO GET DRESSED WITH ASSIST. READY TO GO HOME. Discharge instructions reviewed with patient. Patient verbalizes understanding. Copy given to patient to take home. RX GIVEN TO PT IN DISCHARGE FOLDER. PT SATS NOW 92% ON ROOM AIR. ENCOURAGED PT TO CONTINUE TO DEEP BREATH AND COUGH INSTRUCTIONS, PT UNDERSTANDING. Discharged via wheelchair to private car for ride home.
== END 2018-07-23 10:50 | disposition home or self-care (01) ==
LOC: ORSCMMR 05:47 → ORD 07:30 → ORSCMMR 07:30
PROVIDERS: Surgery
PROC: 0W980ZX Drainage of Chest Wall, Open Approach, Diagnostic (ICD-10-PCS; principal; 2018-07-23 07:30)
DX: T81.49XA Infection following a procedure, other surgical site, initial encounter (principal); I10 Essential (primary) hypertension; K21.9 Gastro-esophageal reflux disease without esophagitis; E66.01 Morbid (severe) obesity due to excess calories; Z68.43 Body mass index [BMI] 50.0-59.9, adult; Z79.899 Other long term (current) drug therapy
CPT/HCPCS: A9270-GY; J1100; J2250; J2370; J2405; J2704; J2710; J2765; J3010; J7120

== ENCOUNTER 2018-08-03 01:30 | Day surgery (SDC) | payer OTHER | END 2018-08-03 22:37 | disposition home or self-care (01) | LOC: WOUND 01:30 | DX: T81.49XA Infection following a procedure, other surgical site, initial encounter (principal); I10 Essential (primary) hypertension; M19.90 Unspecified osteoarthritis, unspecified site; E78.5 Hyperlipidemia, unspecified; Z85.3 Personal history of malignant neoplasm of breast; Z90.13 Acquired absence of bilateral breasts and nipples | CPT/HCPCS: G0463 ==

== ENCOUNTER 2018-08-11 14:47 | Day surgery (SDC) | payer OTHER ==
[~2018-08-11 14:47] MED LIST changes: -BACL20 PO; -DICLOFENAC SOD100 G1 TOP; -DULOXETINE HCL30 MG PO; -HIPREX1 GM PO; -LOSARTAN POTAS100 MG PO; -METO50 PO; -NASACORT10.8 ML; -OXYB5 PO; -Percocet 10-321 EACH PO; -Vitamin C100 M1 PO
[2018-09-23] MEDS ORDERED: BACL20 PO (12:07)
[2018-09-23] MEDS ORDERED: LOSARTAN POTAS100 MG PO (12:07)
[2018-09-23] MEDS ORDERED: METO50 PO (12:07)
[2018-09-23] MEDS ORDERED: DULOXETINE HCL30 MG PO (12:08)
[2018-09-23] MEDS ORDERED: DICLOFENAC SOD100 G1 TOP (12:09)
[2018-09-23] MEDS ORDERED: Percocet 10-321 EACH PO (12:10)
[2018-09-23] MEDS ORDERED: HIPREX1 GM PO (12:12)
[2018-09-23] MEDS ORDERED: ASCO500 PO (12:12)
[2018-09-23] MEDS ORDERED: OXYB5 PO (12:13)
[2018-09-23] MEDS ORDERED: ONDA4ODT MM (12:14)
[2018-09-23] MEDS ORDERED: NASACORT10.8 ML (12:14)
[2018-09-23] MEDS ORDERED: LORA1 PO (12:14)
[2018-09-23] MEDS ORDERED: CHOL10002 PO (12:14)
[2018-09-23] MEDS ORDERED: GABA600 PO ×2 (12:15→12:17)
[2018-09-25] MEDS ORDERED: VITAMIN D-32000 UNIT PO (14:58)
[2018-09-25] MEDS ORDERED: ASPI81CH PO (14:59)
[2018-09-25] MEDS ORDERED: NITR.6SL SL (15:00)
[2018-09-25] MEDS ORDERED: ATOR40TA PO (15:00)
[2018-09-25] MEDS ORDERED: Pyridium200 MG PO (15:01)
[2018-09-25] MEDS ORDERED: PANT20 PO (15:01)
[2018-12-02] MEDS ORDERED: METF500 PO (16:45)
[2018-12-02] MEDS ORDERED: Triamcinolone A15 G3 TOP (16:46)
[2018-12-02] MEDS ORDERED: NITR2.5ER PO (16:46)
== END 2018-08-11 23:20 | disposition home or self-care (01) ==
LOC: WOUND 14:47
DX: T81.49XA Infection following a procedure, other surgical site, initial encounter (principal); S21.002A Unspecified open wound of left breast, initial encounter; C50.912 Malignant neoplasm of unspecified site of left female breast; I10 Essential (primary) hypertension; F41.9 Anxiety disorder, unspecified; E78.5 Hyperlipidemia, unspecified; Z90.13 Acquired absence of bilateral breasts and nipples
CPT/HCPCS: G0463

== ENCOUNTER → 2018-08-12 | Outpatient (CLI) | payer OTHER ==
[~2018-08-12] MED LIST changes: +ASCO500 PO; +ASPI81CH PO; +ATOR40TA PO; +BACL20 PO; +CHOL10002 PO; +Culturelle1 CAP PO; +DICLOFENAC SOD100 G1 TOP; +DOXY100 PO; +DULOXETINE HCL30 MG PO; +HIPREX1 GM PO; +LOSARTAN POTAS100 MG PO; +METF500 PO; +METO50 PO; +NASACORT10.8 ML; +NITR.6SL SL; +NITR2.5ER PO; +OXYB5 PO; +PANT20 PO; +PRED20 PO; +Percocet 10-321 EACH PO; +Pyridium200 MG PO; +Triamcinolone A15 G3 TOP; +VITAMIN D-32000 UNIT PO
[2018-08-12 18:21] LABS: Adenovirus F 40/41 Not Detected (NOT DETECT); Astrovirus Not Detected (NOT DETECT); Campylobacter Sp Not Detected (NOT DETECT); Cryptosporidium Not Detected (NOT DETECT); Cyclospora Cayetanensis Not Detected (NOT DETECT); E. Coli O157 Not Detected (NOT DETECT); Entamoeba Histolytica Not Detected (NOT DETECT); Enteroaggregative E. coli-EAEC Not Detected (NOT DETECT); Enteropathogenic E. coli-EPEC Not Detected (NOT DETECT); Enterotoxigenic E. coli-ETEC Not Detected (NOT DETECT); Giardia Lamblia Not Detected (NOT DETECT); Norovirus GI/GII Not Detected (NOT DETECT); Plesiomonas Shigelloides Not Detected (NOT DETECT); Rotavirus A Not Detected (NOT DETECT); Salmonella Sp Not Detected (NOT DETECT); Sapovirus Not Detected (NOT DETECT); Shiga Toxin-prod E. coli-STEC Not Detected (NOT DETECT); Shigella/Enteroin E. coli-EIEC Not Detected (NOT DETECT); Vibrio Cholerae Not Detected (NOT DETECT); Vibrio Sp Not Detected (NOT DETECT); Yersinia Enterocolitica Not Detected (NOT DETECT)
== END | disposition home or self-care (01) ==
LOC: LAB SHORT 11:00 → LAB 11:00 → LAB FUT 08-12 15:30
PROVIDERS: Internal Medicine Hematology & Oncology
DX: R19.7 Diarrhea, unspecified (principal)
CPT/HCPCS: 87324; 87507

== ENCOUNTER 2018-08-18 10:55 | Day surgery (SDC) | payer OTHER ==
[~2018-08-18 10:55] MED LIST changes: -ASCO500 PO; -ASPI81CH PO; -ATOR40TA PO; -BACL20 PO; -CHOL10002 PO; -Culturelle1 CAP PO; -DICLOFENAC SOD100 G1 TOP; -DOXY100 PO; -DULOXETINE HCL30 MG PO; -HIPREX1 GM PO; -LOSARTAN POTAS100 MG PO; -METF500 PO; -METO50 PO; -NASACORT10.8 ML; -NITR.6SL SL; -NITR2.5ER PO; -OXYB5 PO; -PANT20 PO; -PRED20 PO; -Percocet 10-321 EACH PO; -Pyridium200 MG PO; -Triamcinolone A15 G3 TOP; -VITAMIN D-32000 UNIT PO
[2018-09-23] MEDS ORDERED: LOSARTAN POTAS100 MG PO (12:07)
[2018-09-23] MEDS ORDERED: METO50 PO (12:07)
[2018-09-23] MEDS ORDERED: BACL20 PO (12:07)
[2018-09-23] MEDS ORDERED: DULOXETINE HCL30 MG PO (12:08)
[2018-09-23] MEDS ORDERED: DICLOFENAC SOD100 G1 TOP (12:09)
[2018-09-23] MEDS ORDERED: Percocet 10-321 EACH PO (12:10)
[2018-09-23] MEDS ORDERED: HIPREX1 GM PO (12:12)
[2018-09-23] MEDS ORDERED: ASCO500 PO (12:12)
[2018-09-23] MEDS ORDERED: OXYB5 PO (12:13)
[2018-09-23] MEDS ORDERED: CHOL10002 PO (12:14)
[2018-09-23] MEDS ORDERED: NASACORT10.8 ML (12:14)
[2018-09-23] MEDS ORDERED: ONDA4ODT MM (12:14)
[2018-09-23] MEDS ORDERED: LORA1 PO (12:14)
[2018-09-23] MEDS ORDERED: GABA600 PO ×2 (12:15→12:17)
[2018-09-25] MEDS ORDERED: VITAMIN D-32000 UNIT PO (14:58)
[2018-09-25] MEDS ORDERED: ASPI81CH PO (14:59)
[2018-09-25] MEDS ORDERED: NITR.6SL SL (15:00)
[2018-09-25] MEDS ORDERED: ATOR40TA PO (15:00)
[2018-09-25] MEDS ORDERED: PANT20 PO (15:01)
[2018-09-25] MEDS ORDERED: Pyridium200 MG PO (15:01)
[2018-12-02] MEDS ORDERED: METF500 PO (16:45)
[2018-12-02] MEDS ORDERED: Triamcinolone A15 G3 TOP (16:46)
[2018-12-02] MEDS ORDERED: NITR2.5ER PO (16:46)
== END 2018-08-18 22:44 | disposition home or self-care (01) ==
LOC: WOUND 10:55
DX: T81.89XA Other complications of procedures, not elsewhere classified, initial encounter (principal); S21.001A Unspecified open wound of right breast, initial encounter; C50.912 Malignant neoplasm of unspecified site of left female breast; I10 Essential (primary) hypertension; M19.90 Unspecified osteoarthritis, unspecified site; Z90.13 Acquired absence of bilateral breasts and nipples; Z88.0 Allergy status to penicillin; Z88.2 Allergy status to sulfonamides; Z88.5 Allergy status to narcotic agent; Z88.1 Allergy status to other antibiotic agents; Z91.040 Latex allergy status; Z88.8 Allergy status to other drugs, medicaments and biological substances; Z91.041 Radiographic dye allergy status
CPT/HCPCS: G0463

== ENCOUNTER → 2018-09-08 | Outpatient (CLI) | payer OTHER ==
[~2018-09-08] MED LIST changes: +ASCO500 PO; +ASPI81CH PO; +ATOR40TA PO; +BACL20 PO; +CHOL10002 PO; +Culturelle1 CAP PO; +DICLOFENAC SOD100 G1 TOP; +DOXY100 PO; +DULOXETINE HCL30 MG PO; +HIPREX1 GM PO; +LOSARTAN POTAS100 MG PO; +METF500 PO; +METO50 PO; +NASACORT10.8 ML; +NITR.6SL SL; +NITR2.5ER PO; +OXYB5 PO; +PANT20 PO; +PRED20 PO; +Percocet 10-321 EACH PO; +Pyridium200 MG PO; +Triamcinolone A15 G3 TOP; +VITAMIN D-32000 UNIT PO
[2018-09-08 19:05] LABS: Appearance, Urine Hazy (Clear); Bilirubin, Urine Neg (Neg); Blood, Urine Neg (Neg); Color, Urine Amber (P-Yellow); Glucose Qualitative, Urine Neg (Neg); Ketones, Urine 1+ (Neg); Leukocyte Esterase, Urine 1+ (Neg); Nitrite, Urine Neg (Neg); Protein, Urine 2+ (Neg); Specific Gravity, Urine 1.015 (1.003-1.022); Urobilinogen, Urine NORM (Normal); pH, Urine 6.5 (5.0-8.0)
[2018-09-08 19:18] LABS: Bacteria Many /hpf; Red Blood Cells, Urine 0-2 /hpf (0-2); Squamous Epithelial Cells Mod /hpf (Few)
== END | disposition home or self-care (01) ==
LOC: LAB 18:08 → LAB SHORT 18:08
PROVIDERS: Internal Medicine Hematology & Oncology
DX: N39.0 Urinary tract infection, site not specified (principal)
CPT/HCPCS: 81001; 87086

== ENCOUNTER 2018-09-26 13:18 | Inpatient (IN) | payer OTHER ==
[~2018-09-26] VITALS: Ht 165.1 cm; Wt 134.2 kg
[~2018-09-26 13:18] MED LIST changes: -Culturelle1 CAP PO; -DOXY100 PO; -METF500 PO; -NITR2.5ER PO; -PRED20 PO; -Triamcinolone A15 G3 TOP
[2018-09-26 14:12] LABS: BASOPHILS ABSOLUTE AUTO 0.06 K/mm3 (0.00-0.23); BASOPHILS PERCENT AUTO 1 % (0-2); EOSINOPHILS ABSOLUTE AUTO 0.17 K/mm3 (0.00-0.68); EOSINOPHILS PERCENT AUTO 2 % (0-6); Hemoglobin 12.9 g/dL (11.5-16.0); IMMATURE GRAN ABSOLUTE AUTO 0.06 K/mm3 (0.00-0.10); IMMATURE GRAN PERCENT AUTO 1 % (0-1); LYMPHOCYTES ABSOLUTE AUTO 1.11 K/mm3 (0.84-5.20); LYMPHOCYTES PERCENT AUTO 10 % (21-46); MONOCYTES ABSOLUTE AUTO 0.79 K/mm3 (0.16-1.47); MONOCYTES PERCENT AUTO 7 % (4-13); Mean Corpuscular HGB 29.1 pg (26.0-34.0); Mean Corpuscular HGB Conc 33.1 g/dL (31.5-36.5); Mean Corpuscular Volume 88 fL (80-100); Mean Platelet Volume 9.8 fL (9.1-12.4); NEUTROPHILS ABSOLUTE AUTO 9.37 K/mm3 (1.96-9.15); NEUTROPHILS PERCENT AUTO 81 % (41-73); Platelet Count 159 K/mm3 (150-400); RDW Coefficient Variation 14.4 % (11.7-14.2); RDW Standard Deviation 46.2 fL (35.1-46.3); Red Blood Cell Count 4.44 M/mm3 (3.80-5.20); White Blood Cell Count 11.56 K/mm3 (4.00-11.30)
[2018-09-26 14:13] LABS: Source, Urine Catheter
[2018-09-26 14:15] LABS: Bilirubin, Urine Neg (Neg); Blood, Urine Neg (Neg); Glucose Qualitative, Urine Neg (Neg); Ketones, Urine 1+ (Neg); Leukocyte Esterase, Urine 1+ (Neg); Nitrite, Urine Neg (Neg); Protein, Urine 2+ (Neg); Specific Gravity, Urine 1.015 (1.003-1.022); Urobilinogen, Urine NORM (Normal)
[2018-09-26 14:21] LABS: Appearance, Urine Hazy (Clear); Color, Urine Yellow (P-Yellow)
[2018-09-26 14:22] LABS: Red Blood Cells, Urine 0-2 /hpf (0-2); Squamous Epithelial Cells Few /hpf (Few)
[2018-09-26 14:23] LABS: Bacteria Mod /hpf
[2018-09-26 14:30] LABS: Alanine Aminotransfer (ALT/SGP 19 U/L (12-78); Albumin, Blood 3.4 g/dL (3.4-5.0); Albumin/Globulin Ratio 0.7 (0.8-1.8); Alk Phos 71 U/L (50-136); Anion Gap 5 mmol/L (6-16); Aspartate Aminotrans (AST/SGOT 43 U/L (12-37); Bilirubin, Total 0.8 mg/dL (0.1-1.0); Blood Urea Nitrogen 10 mg/dL (8-24); Bun/Creatinine Ratio 13.9 (12.0-20.0); CO2, Blood 34 mmol/L (21-32); Calcium, Blood 8.7 mg/dL (8.5-10.1); Chloride, Blood 96 mmol/L (98-108); Creatinine, Blood 0.72 mg/dL (0.40-1.00); Globulin, Blood 4.7 g/dL (2.2-4.0); Glomerular Filtration Rate >60 (60-); Glucose, Blood 151 mg/dL (70-99); Potassium, Blood 3.8 mmol/L (3.5-5.5); Sodium, Blood 135 mmol/L (136-145); Total Protein, Blood 8.1 g/dL (6.4-8.2)
--- NOTE | 2018-09-27 04:16 | NUR ---
NOC SHIFT SUMMARY PT ADMITTED TO FLOOR ON PROIR SHIFT FOR CELLULITIS OF CHEST WALL. ENTIRE CHEST FROM NECK TO STOMACH AND ARMPIT TO ARMPIT ARE AFFECTED. RECIEVING IV ABX AND IV FLUIDS. VSS. PAIN AND ITCHINESS TREATED PER EMAR. PT PRESENTLY APPEARS TO BE SLEEPING AND IN NO ACTUE DISTRESS. WILL CONTINUE TO MONITOR.
[2018-09-27 05:25] LABS: BASOPHILS ABSOLUTE AUTO 0.03 K/mm3 (0.00-0.23); BASOPHILS PERCENT AUTO 0 % (0-2); EOSINOPHILS ABSOLUTE AUTO 0.29 K/mm3 (0.00-0.68); EOSINOPHILS PERCENT AUTO 3 % (0-6); Hematocrit 34.6 % (33.0-51.0); Hemoglobin 11.1 g/dL (11.5-16.0); IMMATURE GRAN ABSOLUTE AUTO 0.04 K/mm3 (0.00-0.10); IMMATURE GRAN PERCENT AUTO 1 % (0-1); LYMPHOCYTES ABSOLUTE AUTO 1.35 K/mm3 (0.84-5.20); LYMPHOCYTES PERCENT AUTO 16 % (21-46); MONOCYTES ABSOLUTE AUTO 0.94 K/mm3 (0.16-1.47); MONOCYTES PERCENT AUTO 11 % (4-13); Mean Corpuscular HGB 28.9 pg (26.0-34.0); Mean Corpuscular HGB Conc 32.1 g/dL (31.5-36.5); Mean Corpuscular Volume 90 fL (80-100); Mean Platelet Volume 9.9 fL (9.1-12.4); NEUTROPHILS ABSOLUTE AUTO 5.96 K/mm3 (1.96-9.15); NEUTROPHILS PERCENT AUTO 69 % (41-73); Platelet Count 130 K/mm3 (150-400); RDW Coefficient Variation 14.6 % (11.7-14.2); RDW Standard Deviation 48.2 fL (35.1-46.3); Red Blood Cell Count 3.84 M/mm3 (3.80-5.20); White Blood Cell Count 8.61 K/mm3 (4.00-11.30)
[2018-09-27 06:19] LABS: Alanine Aminotransfer (ALT/SGP 22 U/L (12-78); Albumin, Blood 2.8 g/dL (3.4-5.0); Albumin/Globulin Ratio 0.7 (0.8-1.8); Alk Phos 64 U/L (50-136); Anion Gap 3 mmol/L (6-16); Aspartate Aminotrans (AST/SGOT 34 U/L (12-37); Bilirubin, Total 0.7 mg/dL (0.1-1.0); Blood Urea Nitrogen 9 mg/dL (8-24); CO2, Blood 33 mmol/L (21-32); Calcium, Blood 8.2 mg/dL (8.5-10.1); Chloride, Blood 103 mmol/L (98-108); Creatinine, Blood 0.64 mg/dL (0.40-1.00); Globulin, Blood 4.2 g/dL (2.2-4.0); Glomerular Filtration Rate >60 (60-); Glucose, Blood 118 mg/dL (70-99); Magnesium, Blood 2.1 mg/dL (1.6-2.4); Sodium, Blood 139 mmol/L (136-145)
--- NOTE | 2018-09-27 17:53 | NUR ---
SHIFT SUMMARY PATIENT IS PLEASANT AND ALERT. NO IV FLUIDS, ONE PERSON ASSIST TO THE BEDSIDE COMMODE. NO ACUTE CONCERNS AT THIS TIME. HER REDNESS IS RECEDING FROM THE CURRENT MARKED LINES. PICTURES ARE IN THE CHART. NO ACUTE CONCERNS FROM THE PATIENT. HER PAIN IS WELL MANAGED AT THIS TIME.
[2018-09-28 05:28] LABS: BASOPHILS ABSOLUTE AUTO 0.02 K/mm3 (0.00-0.23); BASOPHILS PERCENT AUTO 0 % (0-2); EOSINOPHILS ABSOLUTE AUTO 0.16 K/mm3 (0.00-0.68); EOSINOPHILS PERCENT AUTO 2 % (0-6); Hemoglobin 11.5 g/dL (11.5-16.0); IMMATURE GRAN ABSOLUTE AUTO 0.05 K/mm3 (0.00-0.10); IMMATURE GRAN PERCENT AUTO 1 % (0-1); LYMPHOCYTES ABSOLUTE AUTO 1.82 K/mm3 (0.84-5.20); LYMPHOCYTES PERCENT AUTO 18 % (21-46); MONOCYTES ABSOLUTE AUTO 0.96 K/mm3 (0.16-1.47); MONOCYTES PERCENT AUTO 10 % (4-13); Mean Corpuscular HGB 28.5 pg (26.0-34.0); Mean Corpuscular HGB Conc 31.9 g/dL (31.5-36.5); Mean Corpuscular Volume 89 fL (80-100); NEUTROPHILS PERCENT AUTO 70 % (41-73); Platelet Count 172 K/mm3 (150-400); RDW Coefficient Variation 14.1 % (11.7-14.2); RDW Standard Deviation 45.4 fL (35.1-46.3); Red Blood Cell Count 4.04 M/mm3 (3.80-5.20); White Blood Cell Count 10.01 K/mm3 (4.00-11.30)
[2018-09-28 05:42] LABS: Anion Gap 3 mmol/L (6-16); Blood Urea Nitrogen 8 mg/dL (8-24); CO2, Blood 35 mmol/L (21-32); Calcium, Blood 9.1 mg/dL (8.5-10.1); Chloride, Blood 103 mmol/L (98-108); Creatinine, Blood 0.61 mg/dL (0.40-1.00); Glomerular Filtration Rate >60 (60-); Glucose, Blood 108 mg/dL (70-99); Potassium, Blood 4.8 mmol/L (3.5-5.5); Sodium, Blood 141 mmol/L (136-145)
--- NOTE | 2018-09-28 07:44 | NUR ---
NOC SHIFT SUMMARY PT IS PLEASANT AND COOPERATIVE WITH CARE. VSS. HER RASH IS IMPROVED SINCE ADMIT. TREATED FOR PAIN PER EMAR THIS NIGHT. NO ACUTE CHANGES NOTED. REPORT TO ONCOMING RN.
[2018-09-28 14:33] LABS: Vancomycin, Trough 12.4 ug/mL (5.0-10.0)
--- NOTE | 2018-09-28 16:21 | NUR ---
SUMMARY PT IS A/O X4, PLEASANT AFFECT. SHE IS SBA TO BSC. STATE CONTINUING "BURNING" PAIN CELLULITIS SITE ABD & CHEST. STATE NEUROPATHY PAIN ESPECIALLY LLE. DR SARABIA INCREASE PAIN MEDS FOR BETTER CONTROL/RELIEF TODAY. PRN OXYCODONE 10MG & TYLENOL 500MG APPROX Q4 IN ADDITION TO FENT 25MCG X1 TODAY. REDDENED AREA IS MAPPED, APPEARS TO BE DECREASING, PT/FAMILY STATE HAS RECEDED. IV ANTIBX CONTINUE. CX INDICATE NO MRSA, ISOLATION D/C'D. VSS.
--- NOTE | 2018-09-28 19:53 | NUR ---
Assumed care of patient. Patuient sitting up in bed with at bedside. She is on 2L O2 at baseline, SCDs in place, rash across chest remains within the bounds of demarkation; patient says she has increasing neuropathic pains. will medicate early with scheduled meds. call grande within reach.
--- NOTE | 2018-09-29 18:38 | NUR ---
SHIFT SUMMARY PT UP TO BSC WITH 1 PEROSN ASSIST. USING FWW. UP TO CHAIR FOR SUPPER. MEDCIATED REGULARLY FOR PAIN. CHEST WALL RASH REMAINS RED BUT IMPROVING AND REMAINS WITHIN LINE DRAWN. NO ON ORAL ANTIBIOTICS. FAMILY IN TO VISIT THIS MORNING.
--- NOTE | 2018-09-30 04:28 | NUR ---
SHIFT SUMMARY NO ACUTE CHANGES OVERNIGHT. CELLULTIS TO CHEST WALL HAS NOT SPREAD AND REMAINS WITHIN THE AREA OUTLINED. PT HAS INTERMITTMENT PAIN THERE OFF AND ON THAT IS RELIEVED WITH PRN OXYCODONE. PT RESTS FOR MOST OF THE NIGHT. VITALS STABLE. ASSESSMENT UNCHANGED. WILL CONTINUE TO MONITOR AND REPORT TO ONCOMING RN.
--- NOTE | 2018-09-30 09:29 | NUR ---
PT C/O REPRODUCIBLE CHEST PAIN DESCRIBED "TIGHTNESS" INCREASES ON PALPATION TO UPPER CHEST BILATERALLY. STATES "I THINK IT'S SOMETHING I SHOULD TALK WITH DR. ANDINO ABOUT" DENIES SOB, NAUSEA NO DIAPHORESIS. MEDICATED PER EMAR. ALL ABOVE REPORTED TO DR. SARABIA WHILE AT BEDSIDE WITH PATIENT. ALL ABOVE REPORTED TO DR. SARABIA.
--- NOTE | 2018-09-30 14:09 | NUR ---
CLEANED SURGICAL WOUND AND REPLACED MEPILEX TO LEFT BREAST. SITE WNL NO SWELLING OR REDDNESS; SMALL AMOUNT OF YELLOWISH EXUDATE.
--- NOTE | 2018-09-30 14:15 | NUR ---
PT REPORTS PAIN TO TORSO 10; CURRENTLY SMILING SITTING UP ON FACE TIME WITH FAMILY. APPEARS CALM AND COMFORTABLE. DENIES CHILLS OR FEVER. TRANSFERS FROM BED TO BSC WITH NO DISTRESS. DR. SARABIA AWARE OF PATIENTS PAIN.
--- NOTE | 2018-09-30 18:16 | NUR ---
SHIFT SUMMARY CALM AND PLEASANT THROUGHOUT SHIFT. C/O UPPER REPRODUCIBLE TORSO/CHESTPAIN EARLY IN SHIFT BUT APPEARED SMILING, LAUGHING ON PHONE WITH FAMILY AND ABLE TO TRANSFER WELL FROM BED TO CHAIR WITHOUT DIFFICULTY. REQUESTING NARCOTIC PAIN MEDICATION Q4 HOURS. EATING AND DRINKING VERY WELL. SPOUSE TO VISIT THIS P.M. WITH THEIR DOG. DR. SARABIA DISCUSSED DISCHARGE PLANS WITH PATIENT.
--- NOTE | 2018-10-01 06:22 | NUR ---
SHIFT SUMMARY PT A/O SBA TO BSC. C/O PAIN IN TORSO AND CHEST AND MEDICATED PER EMAR. SAYS IT'S 8/10 PAIN BUT IS SMILING AND VERY CHEERY WHEN INTERACTING. SHE WAS ABLE TO SLEEP ON AND OFF T/O NIGHT. 2L O2 NC. CALL LIGHT IN REACH.
--- NOTE | 2018-10-01 17:53 | NUR ---
SHIFT SUMMARY OX4 PLEASANT, CALM. CHRONIC PAIN AND EXTENSIVE MEDICAL HX. CELLULITIS SHOWS IMPROVEMENT. PT CONTINUES TO REPORT 8/10 PAIN TO UPPER CHEST. SURGICAL CONSULT COMPLETED BY DR. BOGGS TODAY NO NEW ORDERS OR INTERVENTIONS. EATING AND DRINKING WELL. 1 PERSON TO BSC. MORBID OBESITY. POSSIBLE DC TOMORROW.
--- NOTE | 2018-10-02 07:19 | NUR ---
SHIFT SUMMARY PT A/O C/O PAIN IN CHEST TORSO AREA AND MEDICATED PER EMAR. SBA TO BSC. 2L O2 NC. SHE WAS ABLE TO SLEEP T/O NIGHT. RASH COLOR LOOKS MORE PALE PINK.
[2018-10-02] MEDS ORDERED: Culturelle1 CAP PO (12:04)
[2018-10-02] MEDS ORDERED: DOXY100 PO (12:04)
[2018-10-02] MEDS ORDERED: PRED20 PO (12:05)
--- NOTE | 2018-10-02 13:10 | NUR ---
PATIENT DISCHARGE: PATIENT DISCHARGED TO HOME THIS SHIFT. MEDICATION RECONCILIATION COMPLETED; MED LIST FAXED TO [facility] IN [place]. DISCHARGE EDUCATION COMPLETED WITH PATIENT AND SPOUSE. PATIENT TRANSPORTED TO EXIT BY [facility] WITH WHEELCHAIR AT [id number]. PATIENT DEPARTED [facility] VIA PRIVATE AUTO.
[2018-12-02] MEDS ORDERED: METF500 PO (16:45)
[2018-12-02] MEDS ORDERED: Triamcinolone A15 G3 TOP (16:46)
[2018-12-02] MEDS ORDERED: NITR2.5ER PO (16:46)
== END 2018-10-02 12:58 | disposition home or self-care (01) | DRG 603 ==
LOC: ER 13:18 → MEDS 15:17
PROVIDERS: Emergency Medicine; Internal Medicine; ADMIT Family Medicine
DX: L03.313 Cellulitis of chest wall (principal); Z68.43 Body mass index [BMI] 50.0-59.9, adult; L02.213 Cutaneous abscess of chest wall; I10 Essential (primary) hypertension; E66.01 Morbid (severe) obesity due to excess calories; R30.0 Dysuria; R73.9 Hyperglycemia, unspecified; M79.7 Fibromyalgia; G47.33 Obstructive sleep apnea (adult) (pediatric); Z74.09 Other reduced mobility; Z90.13 Acquired absence of bilateral breasts and nipples; Z88.1 Allergy status to other antibiotic agents; Z91.041 Radiographic dye allergy status; Z88.0 Allergy status to penicillin; Z88.2 Allergy status to sulfonamides; Z88.8 Allergy status to other drugs, medicaments and biological substances; Z91.018 Allergy to other foods; Z79.899 Other long term (current) drug therapy
CPT/HCPCS: 36415; 71046; 74176; 80048; 80053; 80061; 80202; 81001; 81003; 82550; 82553; 82947; 83036; 83605; 83690; 83735; 83880; 84100; 84484; 85025; 85379; 87040; 87070; 87086; 87147; 87205; 93005; 93010; 93306; 96361; 96365; 96366; 96374; 96375; 96376; 99284-25; 99285-25; A9270; C9113; G0378; J1650; J2405; J3010; J3370; J7030; J7050; J7512; Q0163

== ENCOUNTER → 2018-10-07 | Outpatient (CLI) | payer OTHER ==
[~2018-10-07] MED LIST changes: +Culturelle1 CAP PO; +DOXY100 PO; +METF500 PO; +NITR2.5ER PO; +PRED20 PO; +Triamcinolone A15 G3 TOP
[2018-10-07 18:11] LABS: Source, Urine Clean Catch
[2018-10-07 18:35] LABS: Bilirubin, Urine Neg (Neg); Blood, Urine 1+ (Neg); Glucose Qualitative, Urine Neg (Neg); Ketones, Urine Neg (Neg); Leukocyte Esterase, Urine Neg (Neg); Nitrite, Urine Neg (Neg); Protein, Urine Neg (Neg); Specific Gravity, Urine 1.025 (1.003-1.022); Urobilinogen, Urine NORM (Normal)
[2018-10-07 18:42] LABS: Appearance, Urine Cloudy (Clear); Color, Urine Yellow (P-Yellow)
[2018-10-07 18:43] LABS: Amorphous Heavy (0-Heavy)
[2018-10-07 18:44] LABS: Bacteria Rare /hpf; Red Blood Cells, Urine 0-2 /hpf (0-2); Squamous Epithelial Cells Few /hpf (Few); White Blood Cells, Urine 0-2 /hpf (0-5)
== END ==
LOC: LAB 16:00 → LAB SHORT 16:00
PROVIDERS: Nurse Practitioner Family
DX: R30.0 Dysuria (principal)
CPT/HCPCS: 81001; 87077; 87086; 87186

== ENCOUNTER → 2018-11-18 | Outpatient (CLI) | payer OTHER ==
[2018-11-18 14:44] LABS: Campylobacter Sp Not Detected (NOT DETECT); Enteroaggregative E. coli-EAEC Not Detected (NOT DETECT); Plesiomonas Shigelloides Not Detected (NOT DETECT); Salmonella Sp Not Detected (NOT DETECT); Vibrio Cholerae Not Detected (NOT DETECT); Vibrio Sp Not Detected (NOT DETECT); Yersinia Enterocolitica Not Detected (NOT DETECT)
[2018-11-18 14:45] LABS: Adenovirus F 40/41 Not Detected (NOT DETECT); Astrovirus Not Detected (NOT DETECT); Cryptosporidium Not Detected (NOT DETECT); Cyclospora Cayetanensis Not Detected (NOT DETECT); E. Coli O157 Not Detected (NOT DETECT); Entamoeba Histolytica Not Detected (NOT DETECT); Enteropathogenic E. coli-EPEC Detected (NOT DETECT); Enterotoxigenic E. coli-ETEC Not Detected (NOT DETECT); Giardia Lamblia Not Detected (NOT DETECT); Norovirus GI/GII Not Detected (NOT DETECT); Rotavirus A Not Detected (NOT DETECT); Sapovirus Not Detected (NOT DETECT); Shiga Toxin-prod E. coli-STEC Not Detected (NOT DETECT); Shigella/Enteroin E. coli-EIEC Not Detected (NOT DETECT)
== END | disposition home or self-care (01) ==
LOC: LAB 11:24 → LAB SHORT 11:24 → LAB FUT 10-27 12:05
PROVIDERS: Internal Medicine Gastroenterology
DX: R19.7 Diarrhea, unspecified (principal); R63.4 Abnormal weight loss
CPT/HCPCS: 0097U; 87324

== ENCOUNTER 2018-12-07 08:09 | Day surgery (SDC) | payer OTHER ==
--- NOTE | 2018-12-07 11:31 | NUR ---
History, Chart, Medications and Allergies reviewed before start of procedure. Lungs clear T/O to Auscultation. Patient confirms NPO status and agrees with scheduled surgery. Pre-Op teaching done. Pt verbalizes understanding. Patient States Post-Procedure ride home has been arranged. Patient reports completing Chlorhexadine shower X2 prior to admission to hospital.
== END 2018-12-07 15:25 | disposition home or self-care (01) ==
LOC: ORSCMMR 08:09 → NM 08:09 → ORSCMMR 08:10 → NM 09:00
PROVIDERS: Surgery
PROC: 07B50ZX Excision of Right Axillary Lymphatic, Open Approach, Diagnostic (ICD-10-PCS; principal; 2018-12-07 11:00)
DX: C50.911 Malignant neoplasm of unspecified site of right female breast (principal); M79.7 Fibromyalgia; I10 Essential (primary) hypertension; E78.5 Hyperlipidemia, unspecified; F41.9 Anxiety disorder, unspecified; F43.10 Post-traumatic stress disorder, unspecified; Z79.899 Other long term (current) drug therapy
CPT/HCPCS: 38792; 82947; 88304; A9270-GY; A9520; J2370; J2405; J2704; J3010; J7120; Q9968

== ENCOUNTER → 2019-02-18 | Outpatient (CLI) | payer OTHER | LOC: LAB 07:32 → LAB SHORT 07:32 → PLD 07:32 | DX: D48.5 Neoplasm of uncertain behavior of skin (principal) | CPT/HCPCS: 88313 ==

== ENCOUNTER → 2019-04-14 | Outpatient (CLI) | payer OTHER ==
[2019-04-14 12:58] LABS: Source, Urine Clean Catch
[2019-04-14 18:15] LABS: Bilirubin, Urine Neg (Neg); Blood, Urine Neg (Neg); Glucose Qualitative, Urine Neg (Neg); Ketones, Urine Neg (Neg); Leukocyte Esterase, Urine 1+ (Neg); Nitrite, Urine Neg (Neg); Protein, Urine 1+ (Neg); Urobilinogen, Urine NORM (Normal)
[2019-04-14 18:26] LABS: Appearance, Urine Turbid (Clear); Color, Urine Yellow (P-Yellow)
[2019-04-14 18:28] LABS: Amorphous Heavy (0-Heavy); Bacteria Few /hpf; Red Blood Cells, Urine 0-2 /hpf (0-2); Squamous Epithelial Cells Few /hpf (Few); White Blood Cells, Urine 0-2 /hpf (0-5)
== END | disposition home or self-care (01) ==
LOC: LAB 12:56 → LAB SHORT 12:56
PROVIDERS: Family Medicine
DX: R30.0 Dysuria (principal)
CPT/HCPCS: 81001; 87077; 87086; 87186

== ENCOUNTER → 2019-06-28 | Outpatient (CLI) | payer OTHER ==
[2019-06-28 16:59] LABS: Bilirubin, Urine Neg (Neg); Blood, Urine 1+ (Neg); Glucose Qualitative, Urine Neg (Neg); Ketones, Urine 1+ (Neg); Leukocyte Esterase, Urine 1+ (Neg); Nitrite, Urine Neg (Neg); Protein, Urine 1+ (Neg); Specific Gravity, Urine 1.015 (1.003-1.022); Urobilinogen, Urine NORM (Normal); pH, Urine 6.5 (5.0-8.0)
[2019-06-28 17:28] LABS: Appearance, Urine Clear (Clear); Color, Urine Yellow (P-Yellow)
[2019-06-28 17:29] LABS: Bacteria Mod /hpf; Squamous Epithelial Cells Few /hpf (Few); White Blood Cells, Urine 25-50 /hpf (0-5)
== END ==
LOC: LAB SHORT 16:24 → LAB 16:24
PROVIDERS: Internal Medicine Hematology & Oncology
DX: N39.0 Urinary tract infection, site not specified (principal)
CPT/HCPCS: 81001; 87077; 87086; 87186

== ENCOUNTER → 2019-10-19 | Outpatient (CLI) | payer OTHER ==
[2019-10-19 18:35] LABS: Appearance, Urine Turbid (Clear); Bilirubin, Urine Neg (Neg); Blood, Urine 1+ (Neg); Color, Urine Amber (P-Yellow); Glucose Qualitative, Urine Neg (Neg); Ketones, Urine 1+ (Neg); Leukocyte Esterase, Urine 1+ (Neg); Nitrite, Urine Neg (Neg); Protein, Urine 3+ (Neg); Specific Gravity, Urine 1.025 (1.003-1.022); Urobilinogen, Urine NORM (Normal)
[2019-10-19 18:48] LABS: Amorphous Mod (0-Heavy); Bacteria Mod /hpf; Red Blood Cells, Urine 0-2 /hpf (0-2); Squamous Epithelial Cells Few /hpf (Few); White Blood Cells, Urine 0-2 /hpf (0-5)
== END ==
LOC: LAB SHORT 17:42 → LAB 17:42
PROVIDERS: Nurse Practitioner Family
DX: N39.0 Urinary tract infection, site not specified (principal)
CPT/HCPCS: 81001; 87077; 87086; 87186

== ENCOUNTER → 2022-05-20 | Outpatient (CLI) | payer OTHER ==
[~2022-05-20] MED LIST changes: +FENTANYL1 EA10 TOP
[2022-05-21 16:51] LABS: Source, Urine Voided
[2022-05-21 17:35] LABS: Appearance, Urine Hazy (Clear); Bilirubin, Urine Neg (Neg); Blood, Urine Neg (Neg); Color, Urine Yellow (P-Yellow); Glucose Qualitative, Urine Neg (Neg); Ketones, Urine 1+ (Neg); Leukocyte Esterase, Urine 1+ (Neg); Nitrite, Urine Neg (Neg); Protein, Urine 2+ (Neg); Specific Gravity, Urine 1.025 (1.003-1.022); Urobilinogen, Urine NORM (Normal)
[2022-05-21 17:42] LABS: Calcium Oxalate Crystals Many /hpf
[2022-05-21 17:43] LABS: Bacteria Many /hpf; Red Blood Cells, Urine 0-2 /hpf (0-2); Squamous Epithelial Cells Mod /hpf (Few)
== END | disposition home or self-care (01) ==
LOC: LAB SHORT 15:35
PROVIDERS: Nurse Practitioner Family
DX: E11.9 Type 2 diabetes mellitus without complications (principal); N39.0 Urinary tract infection, site not specified; Z79.4 Long term (current) use of insulin
CPT/HCPCS: 81001; 82043; 87077; 87086; 87186

== ENCOUNTER → 2023-01-22 | Outpatient (CLI) | payer OTHER ==
[2023-01-22 17:56] LABS: Appearance, Urine Hazy (Clear); Bilirubin, Urine Neg (Neg); Blood, Urine Neg (Neg); Color, Urine Yellow (P-Yellow); Glucose Qualitative, Urine Neg (Neg); Ketones, Urine Neg (Neg); Leukocyte Esterase, Urine 1+ (Neg); Nitrite, Urine Neg (Neg); Protein, Urine 2+ (Neg); Specific Gravity, Urine 1.025 (1.003-1.022); Urobilinogen, Urine NORM (Normal)
[2023-01-22 18:35] LABS: Bacteria Mod /hpf; Red Blood Cells, Urine Not Seen /hpf (0-2); Squamous Epithelial Cells Many /hpf (Few)
== END | disposition home or self-care (01) ==
LOC: LAB 10:55 → LAB SHORT 10:55
PROVIDERS: Family Medicine
DX: R30.0 Dysuria (principal); R82.998 Other abnormal findings in urine
CPT/HCPCS: 81001; 87077; 87086; 87186

== ENCOUNTER 2023-12-05 03:53 | Day surgery (SDC) | payer OTHER ==
[~2023-12-05] VITALS: Wt 127.9 kg
[~2023-12-05 03:53] MED LIST changes: +[UNRECOGNIZED DRUG - OTHER]
[2023-12-05 14:32] VITALS: BP 143/92
[2023-12-05] MEDS ORDERED: Infliximab-DYYB 400 MG in NS 250 ML IV SCH (15:00)
[2023-12-05 15:08] LABS: BASOPHILS ABSOLUTE AUTO 0.08 K/mm3 (0.00-0.23); BASOPHILS PERCENT AUTO 1 % (0-2); EOSINOPHILS ABSOLUTE AUTO 0.34 K/mm3 (0.00-0.68); EOSINOPHILS PERCENT AUTO 4 % (0-6); Hematocrit 40.6 % (33.0-51.0); Hemoglobin 13.9 g/dL (11.5-16.0); IMMATURE GRAN ABSOLUTE AUTO 0.04 K/mm3 (0.00-0.10); IMMATURE GRAN PERCENT AUTO 0 % (0-1); LYMPHOCYTES ABSOLUTE AUTO 2.58 K/mm3 (0.84-5.20); LYMPHOCYTES PERCENT AUTO 27 % (21-46); MONOCYTES ABSOLUTE AUTO 0.53 K/mm3 (0.16-1.47); MONOCYTES PERCENT AUTO 6 % (4-13); Mean Corpuscular HGB 31.8 pg (26.0-34.0); Mean Corpuscular HGB Conc 34.2 g/dL (31.5-36.5); Mean Corpuscular Volume 93 fL (80-100); Mean Platelet Volume 9.7 fL (9.1-12.4); NEUTROPHILS ABSOLUTE AUTO 5.93 K/mm3 (1.96-9.15); NEUTROPHILS PERCENT AUTO 62 % (41-73); Platelet Count 203 K/mm3 (150-400); RDW Coefficient Variation 12.6 % (11.7-14.2); RDW Standard Deviation 42.9 fL (35.1-46.3); Red Blood Cell Count 4.37 M/mm3 (3.80-5.20)
[2023-12-05 15:34] LABS: C-REACTIVE PROTEIN, EXT RANGE 0.555 mg/dL (0.000-0.300)
[2023-12-05 15:38] LABS: Bilirubin, Total 0.6 mg/dL (0.1-1.0); Bun/Creatinine Ratio 24.9 (12.0-20.0); Calcium, Blood 9.3 mg/dL (8.5-10.1); Creatinine, Blood 0.52 mg/dL (0.40-1.00); Globulin, Blood 4.1 g/dL (2.2-4.0); Potassium, Blood 3.6 mmol/L (3.5-5.5); Total Protein, Blood 8.1 g/dL (6.4-8.2)
== END 2023-12-05 17:45 | disposition home or self-care (01) ==
LOC: ATC 03:53
PROVIDERS: Internal Medicine
DX: M06.09 Rheumatoid arthritis without rheumatoid factor, multiple sites (principal); I10 Essential (primary) hypertension; E11.9 Type 2 diabetes mellitus without complications; E66.9 Obesity, unspecified; Z68.42 Body mass index [BMI] 45.0-49.9, adult; Z79.899 Other long term (current) drug therapy; Z91.040 Latex allergy status; Z88.6 Allergy status to analgesic agent; Z88.2 Allergy status to sulfonamides; Z91.041 Radiographic dye allergy status; Z88.0 Allergy status to penicillin; Z88.1 Allergy status to other antibiotic agents; Z90.13 Acquired absence of bilateral breasts and nipples
CPT/HCPCS: 80053; 85025; 86140; 96413; 96415; J7050; Q5103

== ENCOUNTER 2024-01-02 04:32 | Day surgery (SDC) | payer OTHER ==
[2024-01-02 09:10] VITALS: BP 134/84
[2024-01-02] MEDS ORDERED: Infliximab-DYYB 400 MG in NS 250 ML IV SCH (09:20)
[2024-01-02 09:52] LABS: BASOPHILS PERCENT AUTO 1 % (0-2); EOSINOPHILS ABSOLUTE AUTO 0.36 K/mm3 (0.00-0.68); EOSINOPHILS PERCENT AUTO 4 % (0-6); Hematocrit 40.7 % (33.0-51.0); Hemoglobin 14.4 g/dL (11.5-16.0); IMMATURE GRAN ABSOLUTE AUTO 0.05 K/mm3 (0.00-0.10); IMMATURE GRAN PERCENT AUTO 1 % (0-1); LYMPHOCYTES ABSOLUTE AUTO 4.33 K/mm3 (0.84-5.20); LYMPHOCYTES PERCENT AUTO 44 % (21-46); MONOCYTES ABSOLUTE AUTO 0.45 K/mm3 (0.16-1.47); MONOCYTES PERCENT AUTO 5 % (4-13); Mean Corpuscular HGB 32.4 pg (26.0-34.0); Mean Corpuscular HGB Conc 35.4 g/dL (31.5-36.5); Mean Corpuscular Volume 92 fL (80-100); Mean Platelet Volume 10.3 fL (9.1-12.4); NEUTROPHILS ABSOLUTE AUTO 4.54 K/mm3 (1.96-9.15); NEUTROPHILS PERCENT AUTO 46 % (41-73); Platelet Count 291 K/mm3 (150-400); RDW Coefficient Variation 12.5 % (11.7-14.2); Red Blood Cell Count 4.45 M/mm3 (3.80-5.20); White Blood Cell Count 9.83 K/mm3 (4.00-11.30)
[2024-01-02 10:24] LABS: C-REACTIVE PROTEIN, EXT RANGE 0.615 mg/dL (0.000-0.300)
[2024-01-02 10:27] LABS: Albumin, Blood 3.8 g/dL (3.4-5.0); Bilirubin, Total 0.6 mg/dL (0.1-1.0); Bun/Creatinine Ratio 24.6 (12.0-20.0); Calcium, Blood 9.3 mg/dL (8.5-10.1); Creatinine, Blood 0.57 mg/dL (0.40-1.00); Total Protein, Blood 7.8 g/dL (6.4-8.2)
== END 2024-01-02 11:55 | disposition home or self-care (01) ==
LOC: ATC 04:32
PROVIDERS: Internal Medicine
DX: M06.09 Rheumatoid arthritis without rheumatoid factor, multiple sites (principal); E11.9 Type 2 diabetes mellitus without complications; I10 Essential (primary) hypertension; E66.9 Obesity, unspecified; Z68.42 Body mass index [BMI] 45.0-49.9, adult; Z79.899 Other long term (current) drug therapy; Z88.6 Allergy status to analgesic agent; Z88.2 Allergy status to sulfonamides; Z88.1 Allergy status to other antibiotic agents; Z88.8 Allergy status to other drugs, medicaments and biological substances; Z91.040 Latex allergy status; Z91.041 Radiographic dye allergy status; Z90.13 Acquired absence of bilateral breasts and nipples
CPT/HCPCS: 80053; 85025; 86140; 96413; 96415; J7050; Q5103

== ENCOUNTER 2024-03-01 08:11 | Day surgery (SDC) | payer OTHER ==
--- NOTE | 2024-02-27 14:10 | NUR ---
PT CANCELLED TODAYS APPT
[~2024-03-01] VITALS: Wt 126.9 kg
[~2024-03-01 08:11] MED LIST changes: +Infliximab-DYYB 400 MG in NS 250 ML IV SCH
[2024-03-01 08:15] VITALS: BP 140/93
[2024-03-01] MEDS ORDERED: INFLECTRA100 MG IV (08:18)
[2024-03-01] MEDS ORDERED: NS IV SCH (08:30)
[2024-03-01] MEDS ORDERED: INFLIXIMAB DYYB IV SCH (08:30)
[2024-03-01 09:13] VITALS: BP 117/73
[2024-03-01 09:28] VITALS: BP 131/72
[2024-03-01 09:45] VITALS: BP 134/88
[2024-03-01 10:01] VITALS: BP 112/72
[2024-03-01 10:16] VITALS: BP 113/59
== END 2024-03-01 10:53 | disposition home or self-care (01) ==
LOC: ATC 08:11
DX: M06.09 Rheumatoid arthritis without rheumatoid factor, multiple sites (principal); I10 Essential (primary) hypertension; E11.9 Type 2 diabetes mellitus without complications; Z88.2 Allergy status to sulfonamides; Z88.8 Allergy status to other drugs, medicaments and biological substances; Z79.899 Other long term (current) drug therapy
CPT/HCPCS: 96413; 96415; J7050; Q5103

== ENCOUNTER 2024-05-06 02:33 | Day surgery (SDC) | payer OTHER ==
[~2024-05-06] VITALS: Wt 127.2 kg
[~2024-05-06 02:33] MED LIST changes: +INFLECTRA100 MG IV; -Infliximab-DYYB 400 MG in NS 250 ML IV SCH
[2024-05-06 15:00] VITALS: BP 134/75
[2024-05-06] MEDS ORDERED: Infliximab-DYYB 600 MG in NS 250 ML IV SCH (15:25)
[2024-05-06 16:00] LABS: BASOPHILS ABSOLUTE AUTO 0.09 K/mm3 (0.00-0.23); BASOPHILS PERCENT AUTO 1 % (0-2); EOSINOPHILS ABSOLUTE AUTO 0.24 K/mm3 (0.00-0.68); EOSINOPHILS PERCENT AUTO 2 % (0-6); Hematocrit 41.2 % (33.0-51.0); Hemoglobin 14.5 g/dL (11.5-16.0); IMMATURE GRAN ABSOLUTE AUTO 0.04 K/mm3 (0.00-0.10); IMMATURE GRAN PERCENT AUTO 0 % (0-1); LYMPHOCYTES ABSOLUTE AUTO 2.67 K/mm3 (0.84-5.20); LYMPHOCYTES PERCENT AUTO 26 % (21-46); MONOCYTES ABSOLUTE AUTO 0.96 K/mm3 (0.16-1.47); MONOCYTES PERCENT AUTO 9 % (4-13); Mean Corpuscular HGB 32.7 pg (26.0-34.0); Mean Corpuscular HGB Conc 35.2 g/dL (31.5-36.5); Mean Corpuscular Volume 93 fL (80-100); Mean Platelet Volume 9.5 fL (9.1-12.4); NEUTROPHILS ABSOLUTE AUTO 6.29 K/mm3 (1.96-9.15); NEUTROPHILS PERCENT AUTO 61 % (41-73); Platelet Count 224 K/mm3 (150-400); RDW Coefficient Variation 12.9 % (11.7-14.2); Red Blood Cell Count 4.43 M/mm3 (3.80-5.20); White Blood Cell Count 10.29 K/mm3 (4.00-11.30)
[2024-05-06 16:34] LABS: C-REACTIVE PROTEIN, EXT RANGE 1.19 mg/dL (0.000-0.300)
[2024-05-06 16:35] LABS: Albumin, Blood 3.8 g/dL (3.4-5.0); Bilirubin, Total 0.6 mg/dL (0.1-1.0); Bun/Creatinine Ratio 23.6 (12.0-20.0); Calcium, Blood 9.3 mg/dL (8.5-10.1); Creatinine, Blood 0.51 mg/dL (0.40-1.00); Potassium, Blood 3.8 mmol/L (3.5-5.5); Total Protein, Blood 7.8 g/dL (6.4-8.2)
== END 2024-05-06 17:57 | disposition home or self-care (01) ==
LOC: ATC 02:33
PROVIDERS: Internal Medicine Rheumatology
DX: M06.09 Rheumatoid arthritis without rheumatoid factor, multiple sites (principal); E11.9 Type 2 diabetes mellitus without complications; Z79.899 Other long term (current) drug therapy; Z88.2 Allergy status to sulfonamides; Z88.5 Allergy status to narcotic agent; Z88.8 Allergy status to other drugs, medicaments and biological substances; Z91.040 Latex allergy status
CPT/HCPCS: 80053; 85025; 86140; 96413; 96415; J7050; Q5103

== ENCOUNTER 2024-07-01 01:21 | Day surgery (SDC) | payer OTHER ==
[~2024-07-01] VITALS: Wt 128.0 kg
[2024-07-01 15:20] VITALS: BP 121/75
[2024-07-01] MEDS ORDERED: NS IV SCH (15:25)
[2024-07-01] MEDS ORDERED: INFLIXIMAB DYYB IV SCH (15:25)
== END 2024-07-01 17:43 | disposition home or self-care (01) ==
LOC: ATC 01:21
DX: M06.09 Rheumatoid arthritis without rheumatoid factor, multiple sites (principal)
CPT/HCPCS: 96413; 96415; J7050; Q5103

== ENCOUNTER 2024-08-26 02:50 | Day surgery (SDC) | payer OTHER ==
--- NOTE | 2024-08-26 11:37 | NUR ---
PATIENT ON ABX WITH ACTIVE INFECTION. PATIENT APPT CANCELLED.
== END 2024-08-26 23:00 | disposition home or self-care (01) ==
LOC: ATC 02:50
DX: M06.09 Rheumatoid arthritis without rheumatoid factor, multiple sites (principal); Z79.631 Long term (current) use of antimetabolite agent

== ENCOUNTER 2024-10-22 01:50 | Day surgery (SDC) | payer OTHER ==
[~2024-10-22] VITALS: Wt 122.7 kg
[2024-10-22] MEDS ORDERED: HYDMOR2 PO (09:01)
[2024-10-22 09:02] VITALS: BP 143/86
[2024-10-22] MEDS ORDERED: LORAZEPAM0.5 MG PO (09:02)
[2024-10-22] MEDS ORDERED: Infliximab-DYYB 600 MG in NS 250 ML IV SCH (09:10)
[2024-10-22 09:14] LABS: BASOPHILS ABSOLUTE AUTO 0.10 K/mm3 (0.00-0.23); BASOPHILS PERCENT AUTO 1 % (0-2); EOSINOPHILS ABSOLUTE AUTO 0.48 K/mm3 (0.00-0.68); EOSINOPHILS PERCENT AUTO 4 % (0-6); Hematocrit 39.4 % (33.0-51.0); Hemoglobin 13.7 g/dL (11.5-16.0); IMMATURE GRAN ABSOLUTE AUTO 0.10 K/mm3 (0.00-0.10); IMMATURE GRAN PERCENT AUTO 1 % (0-1); LYMPHOCYTES ABSOLUTE AUTO 2.20 K/mm3 (0.84-5.20); LYMPHOCYTES PERCENT AUTO 17 % (21-46); MONOCYTES ABSOLUTE AUTO 0.43 K/mm3 (0.16-1.47); MONOCYTES PERCENT AUTO 3 % (4-13); Mean Corpuscular HGB Conc 34.8 g/dL (31.5-36.5); Mean Corpuscular Volume 94 fL (80-100); NEUTROPHILS ABSOLUTE AUTO 9.80 K/mm3 (1.96-9.15); NEUTROPHILS PERCENT AUTO 75 % (41-73); NRBC ABSOLUTE 0.00 K/mm3 (0.00-0.02); NRBC Auto 0.0 /100 WBC (0.0-0.2); Platelet Count 268 K/mm3 (150-400); RDW Coefficient Variation 13.3 % (11.7-14.2); RDW Standard Deviation 45.1 fL (35.1-46.3)
[2024-10-22 10:24] LABS: C-REACTIVE PROTEIN, EXT RANGE 2.08 mg/dL (0.000-0.300)
[2024-10-22 10:29] LABS: Alanine Aminotransfer (ALT/SGP 13.0 U/L (12-78); Albumin, Blood 3.7 g/dL (3.4-5.0); Albumin/Globulin Ratio 0.8 (0.8-1.8); Anion Gap 10.0 mmol/L (3-11); Aspartate Aminotrans (AST/SGOT 18.0 U/L (12-37); Bilirubin, Total 0.6 mg/dL (0.1-1.0); Blood Urea Nitrogen 6.0 mg/dL (8-24); CO2, Blood 32.0 mmol/L (21-32); Calcium, Blood 9.4 mg/dL (8.5-10.1); Chloride, Blood 97.0 mmol/L (98-108); Creatinine, Blood 0.48 mg/dL (0.40-1.00); Globulin, Blood 4.7 g/dL (2.2-4.0); Glucose, Blood 181.0 mg/dL (70-99); Potassium, Blood 3.7 mmol/L (3.5-5.5); Sodium, Blood 135.0 mmol/L (136-145); Total Protein, Blood 8.4 g/dL (6.4-8.2)
[2024-10-26 01:45] LABS: QUANTIFERON MITOGEN MINUS NIL 9.97 IU/mL; QUANTIFERON NIL 0.03 IU/mL; QUANTIFERON PLUS TB1 MINUS NIL 0.00 IU/mL (<=0.34); QUANTIFERON PLUS TB2 MINUS NIL 0.00 IU/mL (<=0.34)
== END 2024-10-22 11:37 | disposition home or self-care (01) ==
LOC: ATC 01:50
PROVIDERS: Internal Medicine Rheumatology
DX: M06.09 Rheumatoid arthritis without rheumatoid factor, multiple sites (principal); Z88.2 Allergy status to sulfonamides; Z79.899 Other long term (current) drug therapy
CPT/HCPCS: 80053; 85025; 86140; 86480; 96413; 96415; J7050; Q5103